=== PATIENT | female | born 1990 | race Caucasian/White ===

== ENCOUNTER 2022-10-22 10:34 | Outpatient (REF) | payer OTHER, SELFPAY ==
[2022-10-22 10:58] LABS: Hematocrit 35.8 % (37.0-47.0); Hemoglobin 11.1 g/dl (12.0-16.0); Mean Corpuscular Hemoglobin 22.7 pg (27.0-33.0); Mean Corpuscular Volume 73.1 fL (80.0-98.0); Mean Platelet Volume 11.1 fL (9.4-12.3); Platelet Count 191 X10*3/uL (160-400); Red Cell Distribution Width 16.1 % (11.0-16.0); White Blood Count 6.9 X10*3/uL (4.8-10.8)
[2022-10-22 12:17] LABS: Alanine Aminotransferase 25 U/L (0-31); Albumin Level 4.2 g/dL (3.5-5.0); Alkaline Phosphatase 95 U/L (39-117); Anion Gap 11 (12-20); Aspartate Amino Transferase 24 U/L (5-31); Bilirubin Direct < 0.2 mg/dL (0.0-0.5); Bilirubin Total 0.4 mg/dL (0.0-1.0); Blood Urea Nitrogen 14 mg/dL (9-16); Calcium 8.9 mg/dL (8.4-10.2); Carbon Dioxide 22 mmol/L (22-29); Chloride 110 mmol/L (96-108); Cholesterol 186 mg/dL; Estimated Glomerular Filt Rate > 60; Glucose Random 94 mg/dL (60-115); HDL Cholesterol 39 mg/dL; LDL Cholesterol Calculated 119 mg/dl; Sodium 139 mmol/L (135-145); Total Protein 6.9 g/dL (6.5-8.0); Triglycerides 140 mg/dL
[2022-10-22 12:33] LABS: Thyroid Stimulating Hormone 1.36 uIU/mL (0.32-4.0)
== END 2022-10-22 10:35 | disposition home or self-care (01) ==
LOC: HO.LAB 10:34
PROVIDERS: PCP Internal Medicine; Visit Provider Internal Medicine
DX: Z00.00 Encounter for general adult medical examination without abnormal findings (principal)
CPT/HCPCS: 36415; 80048; 80061; 80076; 84443; 85027

== ENCOUNTER 2023-01-21 10:18 | Outpatient (REF) | payer OTHER, SELFPAY ==
[2023-01-21 11:18] LABS: Alanine Aminotransferase 44 U/L (0-31); Albumin Level 4.2 g/dL (3.5-5.0); Alkaline Phosphatase 105 U/L (39-117); Anion Gap 12 (12-20); Aspartate Amino Transferase 37 U/L (5-31); Bilirubin Total 0.5 mg/dL (0.0-1.0); Blood Urea Nitrogen 11 mg/dL (9-16); Calcium 9.4 mg/dL (8.4-10.2); Carbon Dioxide 24 mmol/L (22-29); Chloride 108 mmol/L (96-108); Estimated Glomerular Filt Rate > 60; Glucose Random 96 mg/dL (60-115); Potassium 4.3 mmol/L (3.3-5.1); Rheumatoid Factor < 13.0 IU/mL (<15.0); Sodium 140 mmol/L (135-145); Total Protein 9.7 g/dL (6.5-8.0)
[2023-01-30 13:23] LABS: Anti Nuclear Antibody Screen POSITIVE (NEGATIVE)
== END 2023-01-21 10:19 | disposition home or self-care (01) ==
LOC: HO.LAB 10:18
PROVIDERS: Visit Provider Nurse Practitioner Family
DX: M25.50 Pain in unspecified joint (principal)
CPT/HCPCS: 36415; 80053; 86038; 86039; 86431

== ENCOUNTER 2023-02-11 10:15 | Outpatient (REF) | payer OTHER, SELFPAY ==
[2023-02-13 04:20] LABS: HBS Num1 63.24 mIU/mL (0-7.99); HBc Num1 0.08 S/CO (0.00-0.79); HBsAGNum1 0.42 S/CO (0.00-0.99); Hepatitis A Antibody IgM 0.26 Index (0-0.79); Hepatitis B Core Antibody Nonreactive (Nonreactive); Hepatitis B Surface Antigen Negative (Negative); ~HepC Num1 0.23 S/CO (0.00-0.79); ~Hepatitis A Antibody IgM Nonreactive (Nonreactive); ~Hepatitis B Surface Antibody REACTIVE (Nonreactive); ~Hepatitis C Antibody Nonreactive (Nonreactive)
== END 2023-02-11 10:16 | disposition home or self-care (01) ==
LOC: HO.LAB 10:15
PROVIDERS: PCP Internal Medicine; Visit Provider Nurse Practitioner Family
DX: R79.89 Other specified abnormal findings of blood chemistry (principal)
CPT/HCPCS: 36415; 86704; 86706; 86709; 86803; 87340

== ENCOUNTER 2023-02-17 07:59 | Outpatient (REF) | payer OTHER, SELFPAY ==
--- NOTE | ~2023-02-17 | US_ITS ---
EXAMINATION: US ABDOMEN LIMITED CLINICAL INFORMATION: Other specified abnormal findings of blood chemistry. COMPARISON: None available. TECHNIQUE: Real-time imaging of the right upper quadrant abdominal viscera. FINDINGS: PANCREAS: Normal. LIVER: The liver is normal in size. The liver contour is normal. There is diffuse increased liver parenchymal echogenicity. No focal hepatic lesion. There is no intrahepatic biliary duct dilatation seen. GALLBLADDER: A 3 mm nonmobile polyp is seen. The gallbladder is physiologically distended without evidence of stones, sludge, wall thickening or pericholecystic fluid. COMMON BILE DUCT: Normal in caliber measuring 0.5 cm in diameter. RIGHT KIDNEY: Normal. No hydronephrosis. No renal calculi or focal parenchymal lesions. The kidney measures 9.8 cm in maximum dimension. FREE FLUID: None. US/US abdomen limited IMPRESSION: 1. There is generalized increase in hepatic echotexture, consistent with fatty infiltration or hepatocellular disease. Please correlate clinically. No focal hepatic mass or intrahepatic biliary dilatation is seen. 2. A 3 mm nonmobile gallbladder polyp is incidentally noted.
== END 2023-02-17 08:00 | disposition home or self-care (01) ==
LOC: HO.US 07:59
PROVIDERS: PCP Internal Medicine; Visit Provider Nurse Practitioner Family
DX: R10.11 Right upper quadrant pain (principal); R79.89 Other specified abnormal findings of blood chemistry
CPT/HCPCS: 76705

== ENCOUNTER 2023-03-14 10:45 | Outpatient (AMB) | payer OTHER, SELFPAY ==
[2023-03-14 11:05] VITALS: BP 108/72; PULSE 60; TEMP 36.7; O2SAT 97; BMI 39.4
--- NOTE | 2023-03-14 11:05 | A.OFFVIS_ITS ---
Intake Vital Signs 03/14/23 11:05 Height 4 ft 11 in Weight 195 lb 1.745 oz BMI 39.4 BP 108/72 Blood Pressure Location Rt brachial Position Sitting Pulse 60 Pulse Source Pulse Oximeter Temp 98.1 F Temp Source Skin Pulse Oximetry (%) 97 Intake Visit Reasons: Abnormal lab Intake Note: New pt presents today for +ALEX consult. C/o pain in bl hands, bl feet. States 1st cousin on dad's side mentioned having Lupus. Colorist Formulator Required: No Accompanied by: Children Allergies No Known Allergies Allergy (Verified 03/14/23 11:09) Medication List - Last Reconciled 03/14/23 by Lee Fall MD albuterol sulfate 90 mcg/actuation (Ventolin HFA) 2 puffs inhalation Q4-6H PRN HPI HPI Comments History of Present Illness Details This is a 32-year-old female who was referred for evaluation of a positive ALEX when patient was 19 years old she was admitted to the hospital with migraines and at that time she was found to have a positive ALEX. She eventually followed up with a advertising columnist and there were no clear-cut symptoms of lupus at that time. She has not been evaluated by advertising columnist since then. Patient states that since then she has been having flare-ups of multiple joint pain affecting her hands, wrists, fingers, feet associated with swelling and morning stiffness. She states that these attacks can last 1 day up to 1 week. She would have around 10 flare-ups every year. Patient denies Raynaud's. Denies having a butterfly rash on her face. Denies photosensitivity. Denies any blood or frothy urine. Patient denies any history of DVT/PE. Patient had 7 pregnancies in total, 4 miscarriages and 3 live births. She states that she did not have to take aspirin or a blood thinner during her successful pregnancies. 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 [employer] Cognitive needs: No Hearing needs: No Vision needs: Yes Female Reproductive History Menstrual Total pregnancies: 7 Number of Living Children: 3 Ab spontaneous: 4 Review of Systems Const Reports weight gain Eyes Reports no additional complaints Card Reports no additional complaints Resp Reports no additional complaints GI Reports no additional complaints Musc Reports arthralgias and Reports joint swelling Skin/Breast Reports furuncle Psych Reports anxiety and Reports depression Physical Exam Vital Signs: Last Vital Signs Temp 98.1 F 03/14/23 11:05 Pulse 60 03/14/23 11:05 BP 108/72 03/14/23 11:05 Pulse Ox 97 03/14/23 11:05 BMI result Body Mass Index 39.4 Const General: cooperative, healthy appearing and comfortable Nutritional Appearance: obese morbidly obese Orientation/consciousness: patient oriented x3 Limitations: no limitations HEENT Head: Yes normocephalic and Yes atraumatic Mouth: moist mucous membranes Resp Effort & Inspection: normal respiratory effort and able to speak in complete sentences Auscultation: clear to auscultation bilaterally Cardio Rate: regular rate Rhythm: regular rhythm GI Inspection: No distended Palpation (GI): Soft to palpation and nontender Skin Other: Small boil in right lower abdomen Neuro General: patient oriented x3 Extrem Other: Tenderness to palpation in her right 3rd MCP Left 5th MCP tenderness Normal bilateral hand wool spotter strength Left 1st MTP tenderness and positive MTP squeeze test Normal nailfold capillaroscopy Assessment & Plan Assessment & Plan (1) ALEX positive: Code(s): R76.8 - Other specified abnormal immunological findings in serum Plan: In this is a 32-year-old female presents for evaluation of positive ALEX. Since age 19 she has been having intermittent arthralgias. Will order comprehensive serology to screen for underlying autoimmune rheumatic disease. Patient also has LFTs. Will check liver antibodies. Plan I spent 46 minutes reviewing patient's chart, evaluating patient, ordering diagnostic workup, counseling patient and documenting in the chart Orders: Orders Comprehensive Met. Panel Today M32.9 - Systemic lupus erythematosus, unspecified C Reactive Protein Today M32.9 - Systemic lupus erythematosus, unspecified Complete Blood Count Auto Diff Today M32.9 - Systemic lupus erythematosus, unspecified Erythrocyte Sedimentation Rate Today M32.9 - Systemic lupus erythematosus, unspecified Complement C3 Today M32.9 - Systemic lupus erythematosus, unspecified Complement C4 Today M32.9 - Systemic lupus erythematosus, unspecified Anti DNA DS Antibody Today M32.9 - Systemic lupus erythematosus, unspecified Anti Extractable Nuclear Ag Today M32.9 - Systemic lupus erythematosus, unspecified Hepatitis A,B,C Profile Today Z11.59 - Encounter for screening for other viral diseases Protein Creatinine Ratio, Ur Today M32.9 - Systemic lupus erythematosus, unspeci fied DNA Double Stranded-Crithidia Today M32.9 - Systemic lupus erythematosus, unspecified Sjogren's Antibodies Today M32.9 - Systemic lupus erythematosus, unspecified UA w Microscopic Today M32.9 - Systemic lupus erythematosus, unspecified Beta-2 Glycoprotein Antibody Today N96 - Recurrent loss Cardiolipin Antibodies Today N96 - Recurrent loss Lupus Anticoagulant Panel Today N96 - Recurrent loss Liver Kidney Microsomal Ab Today R79.89 - Other specified abnormal findings of blood chemistry Mitochondrial Antibody Today R79.89 - Other specified abnormal findings of blood chemistry Smooth Muscle Antibody Today R79.89 - Other specified abnormal findings of blood chemistry Cyclic Citrullinated Peptide Today M25.50 - Pain in unspecified joint Hemoglobin A1c Today E66.9 - Obesity, unspecified Coding Level of Care Code New Pt Level 4 (76064) Diagnoses ALEX positive R76.8
== END 2023-03-14 11:48 | disposition home or self-care (01) ==
PROVIDERS: PCP Internal Medicine; Visit Provider Student in an Organized Health Care Education/Training Program
DX: R76.8 Other specified abnormal immunological findings in serum (principal)
CPT/HCPCS: 99204

== ENCOUNTER 2023-03-14 10:45 | Outpatient (REF) | payer OTHER, SELFPAY ==
[2023-03-14 12:37] LABS: MANUAL DIFF FLAG NO
[2023-03-14 13:00] LABS: Estimated Average Glucose 97 mg/dL
[2023-03-14 13:33] LABS: Appearance Urine Cloudy; Color Urine PINK; Glucose Urine UA Negative (Negative); Leukocyte Esterase Urine Trace (Negative); Nitrite Urine Negative (Negative); UMIC TRIGGER UA YES; Urine Blood Large (3+) (Negative); Urine Ketones Negative (Negative); Urine Protein 30 (1+) mg/dL (Neg-Trace)
[2023-03-14 13:35] LABS: Bacteria Urine 3+ (None Seen); Hyaline Casts Urine 0-2 /LPF (0-2); RBC Urine 0-2 /HPF (0-2); WBC Urine 0-5 /HPF (0-5)
[2023-03-14 13:42] LABS: Basophils Percent Auto 0.6 % (0-2); Eosinophils Absolute Auto 0.4 X10*3/uL (0.0-0.4); Hematocrit 33.7 % (37.0-47.0); Hemoglobin 10.3 g/dl (12.0-16.0); Imm Gran Abs Auto 0.01 X10*3/uL (0.00-0.03); Imm Gran Pct Auto 0.2 % (0.0-0.4); Lymphocytes Percent Auto 40.2 % (20-40); Mean Corpuscular HGB Conc 30.6 g/dl (31.0-35.0); Mean Corpuscular Hemoglobin 22.3 pg (27.0-33.0); Mean Corpuscular Volume 72.9 fL (80.0-98.0); Mean Platelet Volume 12.1 fL (9.4-12.3); Monocytes Absolute Auto 0.3 X10*3/uL (0.1-1.2); Monocytes Percent Auto 5.4 % (2-11); Neutrophils Absolute Auto 2.3 x10*3/uL (2.0-8.3); Neutrophils Percent Auto 46.6 % (45-73); Platelet Count 180 X10*3/uL (160-400); Red Blood Count 4.62 X10*6/uL (4.20-5.50); Red Cell Distribution Width 16.6 % (11.0-16.0)
[2023-03-14 13:52] LABS: Erythrocyte Sedimentation Rate 12 MM/HR (0-20)
[2023-03-14 14:44] LABS: Creatinine Urine 147.86 mg/dL; Protein/Creatinine Ratio, Ur 0.08 (<0.2); Total Protein Urine Random 12 mg/dL (<12)
[2023-03-14 14:47] LABS: Alanine Aminotransferase 17 U/L (0-31); Albumin Level 4.1 g/dL (3.5-5.0); Alkaline Phosphatase 86 U/L (39-117); Anion Gap 11 (12-20); Aspartate Amino Transferase 20 U/L (5-31); Bilirubin Total 0.3 mg/dL (0.0-1.0); Blood Urea Nitrogen 9 mg/dL (9-16); C Reactive Protein 0.49 mg/dL (< or = 0.50); Calcium 9.2 mg/dL (8.4-10.2); Carbon Dioxide 23 mmol/L (22-29); Chloride 110 mmol/L (96-108); Estimated Glomerular Filt Rate > 60; Glucose Random 104 mg/dL (60-115); Potassium 3.5 mmol/L (3.3-5.1); Sodium 140 mmol/L (135-145); Total Protein 7.2 g/dL (6.5-8.0)
[2023-03-15 05:04] LABS: HBc Num1 0.09 S/CO (0.00-0.79); HBsAGNum1 0.47 S/CO (0.00-0.99); Hepatitis B Core Antibody Nonreactive (Nonreactive); Hepatitis B Surface Antigen Negative (Negative); ~HepC Num1 0.23 S/CO (0.00-0.79); ~Hepatitis A Antibody IgM Nonreactive (Nonreactive); ~Hepatitis B Surface Antibody REACTIVE (Nonreactive); ~Hepatitis C Antibody Nonreactive (Nonreactive)
[2023-03-16 11:48] LABS: Complement C3 148 mg/dL (83-193)
[2023-03-16 17:08] LABS: Cardiolipin IgG Ab <2.0 GPL-U/mL; Cardiolipin IgM Ab 3.5 MPL-U/mL
[2023-03-17 13:47] LABS: Anti DNA DS Antibody <1 IU/mL; Antibody to SS-A Antigen <1.0 NEG AI (<1.0 NEG); Antibody to SS-B Antigen <1.0 NEG AI (<1.0 NEG); Cyclic Citrullinated Peptide <16 UNITS; SM/Ribonucleoprotein Ab <1.0 NEG AI (<1.0 NEG); Smith Protein <1.0 NEG AI (<1.0 NEG)
[2023-03-20 00:09] LABS: Smooth Muscle Antibody 23 U (<20)
[2023-03-20 07:39] LABS: Beta-2 Glycoprotein IgA <2.0 U/mL (<20.0); Beta-2 Glycoprotein IgG <2.0 U/mL (<20.0); Beta-2 Glycoprotein IgM 6.5 U/mL (<20.0)
[2023-03-20 12:53] LABS: Mitochondrial Antibodies NEGATIVE (NEGATIVE)
[2023-03-20 23:04] LABS: Liver Kidney Microsomal Ab <=20.0 U (<=20.0)
[2023-03-21 05:14] LABS: PTT (LAC) Screen 35 sec (<=40)
[2023-03-21 12:58] LABS: DNAds, Crithidia Antibody Negative (Negative)
== END 2023-03-14 10:46 | disposition home or self-care (01) ==
LOC: HO.LAB 10:45
PROVIDERS: PCP Internal Medicine; Visit Provider Student in an Organized Health Care Education/Training Program
DX: Z11.59 Encounter for screening for other viral diseases (principal); M32.9 Systemic lupus erythematosus, unspecified; N96 Recurrent pregnancy loss; R79.89 Other specified abnormal findings of blood chemistry; E66.9 Obesity, unspecified; M25.50 Pain in unspecified joint; R76.8 Other specified abnormal immunological findings in serum
CPT/HCPCS: 36415; 80053; 81001; 83036; 84156; 85025; 85597; 85598; 85613; 85652; 85670; 85730; 86015; 86140; 86146; 86147; 86160; 86200; 86225; 86235; 86255; 86256; 86376; 86704; 86706; 86709; 86803; 87340; 99202

== ENCOUNTER 2023-05-25 13:33 | Outpatient (AMB) | payer OTHER, SELFPAY ==
--- NOTE | 2023-05-25 13:34 | A.OFFVIS_ITS ---
Intake Vital Signs 05/25/23 13:36 Height 4 ft 11 in Weight 195 lb 12.328 oz BMI 39.5 Blood Pressure Location Rt brachial Position Sitting Pulse 93 Pulse Source Pulse Oximeter Temp 97.9 F Temp Source Skin Pulse Oximetry (%) 99 Oxygen Delivery Method Room Air Intake Visit Reasons: ALEX +ve Intake Note: Patient here to follow up on +ALEX c/o left groin rash, now gone Product Support Sales Representative Required: No Accompanied by: Significant Other Allergies No Known Allergies Allergy (Verified 05/25/23 13:43) Medication List - Last Reconciled 05/25/23 by Lee Fall MD albuterol sulfate 90 mcg/actuation (Ventolin HFA) 2 puffs inhalation Q4-6H PRN HPI HPI Comments History of Present Illness Details Patient returns for follow-up after completion of her blood work. Continues to get intermittent swelling of her fingers. Month ago she started h aving pain and swelling in her left hand. She showed me pictures showing her swollen left hand. She also gets pain in her feet. A few weeks ago she developed an itchy rash in her left groin and left thigh which self-resolved after 1 week Initial history: This is a 32-year-old female who was referred for evaluation of a positive ALEX when patient was 19 years old she was admitted to the hospital with migraines and at that time she was found to have a positive ALEX. She eventually followed up with a [employer] and there were no clear-cut symptoms of lupus at that time. She has not been evaluated by [employer] since then. Patient states that since then she has been having flare-ups of multiple joint pain affecting her hands, wrists, fingers, feet associated with swelling and morning stiffness. She states that these attacks can last 1 day up to 1 week. She would have around 10 flare-ups every year. Patient denies Raynaud's. Denies having a butterfly rash on her face. Denies photosensitivity. Denies any blood or frothy urine. Patient denies any history of DVT/PE. Patient had 7 pregnancies in total, 4 miscarriages and 3 live births. She states that she did not have to take aspirin or a blood thinner during her successful pregnancies. 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 [employer] Cognitive needs: No Hearing needs: No Vision needs: Yes Review of Systems Musc Reports arthralgias and Reports joint swelling Skin/Breast Reports erythema and Reports rash Physical Exam Vital Signs: Last Vital Signs Temp 97.9 F 05/25/23 13:36 Pulse 93 05/25/23 13:36 Pulse Ox 99 05/25/23 13:36 Oxygen Delivery Method Room Air 05/25/23 13:36 BMI result Body Mass Index 39.5 Const General: cooperative, healthy appearing and comfortable Nutritional Appearance: obese morbidly obese Orientation/consciousness: patient oriented x3 Limitations: no limitations HEENT Head: Yes normocephalic and Yes atraumatic Mouth: moist mucous membranes Resp Effort & Inspection: normal respiratory effort and able to speak in complete sentences Cardio Rate: regular rate Rhythm: regular rhythm GI Inspection: No distended Palpation (GI): Soft to palpation and nontender Neuro General: patient oriented x3 Extrem Other: Tenderness to palpation in her right 5th MCP Tenderness in between her MCPs and PIPs bilaterally Normal bilateral hand relief operator strength Diffuse left MTP tenderness Right 2nd through 5th MTP tenderness Normal nailfold capillaroscopy Assessment & Plan Assessment & Plan (1) ALEX positive: Comment: This is a 32-year-old female who Code(s): R76.8 - Other specified abnormal immunological findings in serum Plan: In this is a 32-year-old female presents for evaluation of positive ALEX. Since age 19 she has been having intermittent arthralgias. She gets pain and swelling in her hands and feet. Flare-ups happen about once a month and last a few days to 1 week. Labs showed a positive ALEX with negative sub serologies. 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 Start hydroxychloroquine 200 mg Twice daily trial Follow-up in 4 months (2) Elevated LFTs: Code(s): R79.89 - Other specified abnormal findings of blood chemistry Plan: Intermittent transaminitis with borderline positive ASMA, will refer patient to gastroenterology (3) Long-term use of Plaquenil: Code(s): Z79.899 - Other long lines operator (current) drug therapy Plan: Discussed risk of retinopathy associated with hydroxychloroquine. Will refer patient to Ophthalmology Plan I spent 30 minutes reviewing patient's chart, evaluating patient, ordering diagnostic workup, counseling patient and documenting in the chart Orders: Orders Complete Blood Count Auto Diff 4 Months D50.9 - Iron deficiency anemia, unspecified Ferritin 4 Months D50.9 - Iron deficiency anemia, unspecified Transferrin 4 Months D50.9 - Iron deficiency anemia, unspecified Comprehensive Met. Panel 4 Months D50.9 - Iron deficiency anemia, unspecified C Reactive Protein 4 Months D50.9 - Iron deficiency anemia, unspecified Erythrocyte Sedimentation Rate 4 Months D50.9 - Iron deficiency anemia, unspecified IRON PROFILE 4 Months D50.9 - Iron deficiency anemia, unspecified Referrals Ophthalmology Referral Z79.899 - Other fci (current) drug therapy Gastroenterology Referral R79.89 - Other specified abnormal findings of blood chemistry Medications: New hydroxychloroquine 200 mg PO BID 60 tabs 3RF Coding Level of Care Code Est Pt Level 4 (82988) Diagnoses ALEX positive R76.8 Elevated LFTs R79.89 Long-term use of Plaquenil Z79.899
[2023-05-25 13:36] VITALS: PULSE 93; TEMP 36.6; O2SAT 99; BMI 39.5
== END 2023-05-25 14:08 | disposition home or self-care (01) ==
PROVIDERS: PCP Internal Medicine; Visit Provider Student in an Organized Health Care Education/Training Program
DX: R76.8 Other specified abnormal immunological findings in serum (principal); R79.89 Other specified abnormal findings of blood chemistry; Z79.899 Other long term (current) drug therapy
CPT/HCPCS: 99214

== ENCOUNTER → 2023-05-25 13:33 | Outpatient (BNVA) | payer OTHER, SELFPAY | PROVIDERS: PCP Internal Medicine; Visit Provider Student in an Organized Health Care Education/Training Program | DX: R76.8 Other specified abnormal immunological findings in serum (principal); R79.89 Other specified abnormal findings of blood chemistry; Z79.899 Other long term (current) drug therapy | CPT/HCPCS: 99212 ==

== ENCOUNTER 2023-06-26 12:40 | Outpatient (AMB) | payer OTHER, SELFPAY ==
--- NOTE | 2023-06-26 12:48 | A.OFFVIS_ITS ---
Intake Vital Signs 06/26/23 12:49 Height 4 ft 11 in Weight 194 lb 0.108 oz BMI 39.2 BP 110/59 L Blood Pressure Location Rt brachial Position Sitting Pulse 73 Intake Visit Reasons: elevated LFTs Intake Note: Sanna presents in the office as a new patient for elevated LFT CC: She is here today because of the labs. She states that she just found out that she is 9 week . Allergies No Known Allergies Allergy (Verified 06/26/23 12:51) HPI HPI Comments History of Present Illness Details A 32 y/o female referred for elevated liver enzymes-by derm She says she had a sinus infection- she had hx positive ALEX-went to rheumatology- Dr. Sanderson-she was told she has mild lupus. Normal enzymes 09/2022 , mild enzyme elevation 12/2022, 2022- normal enzymes. anemia since Due for Dr. Sanderson repeat labs in August She began hydroxychloroquine 05/16 x 2 wks- D/C due to - She has been having sx of hand swelling-since HS- Nausea and vomiting began with No abdominal pain, hematemesis, hematochezia, fever chills PFSH Medical History History of recurrent miscarriages Surgical History Previous section Family History Mother Crohn's disease IBS (irritable bowel syndrome) Mental and behavioral problem Hypertension Stroke Fibromyalgia Father Mental and behavioral problem Asthma Hypertension Maternal Uncle Colon cancer Social History Household Members: Spouse and Children Housing: Apartment Alcohol intake: never Patient Tobacco Use Status: Never used Tobacco service: No Current occupational status: employed 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 [employer] Cognitive needs: No Hearing needs: No Vision needs: Yes Review of Systems Const All systems reviewed & are unremarkable except as noted in HPI and below Card Denies chest pain GI Denies hematochezia, Denies change in bowel habits, Denies heartburn, Reports diarrhea and Reports nausea Details: 9 wks IUP Physical Exam Vital Signs: Last Vital Signs Pulse 73 06/26/23 12:49 BP 110/59 L 06/26/23 12:49 BMI result Body Mass Index 39.2 Const General: cooperative, healthy appearing, comfortable and no acute distress Orientation/consciousness: patient oriented x3 Limitations: no limitations Eyes Sclerae: sclerae normal Resp Effort & Inspection: normal respiratory effort and able to speak in complete sentences Auscultation: clear to auscultation bilaterally, no rales, no rhonchi and no wheezes Cardio Rate: regular rate Rhythm: regular rhythm GI Inspection: Yes Abdominal panniculus present Palpation (GI): Soft to palpation and nontender Auscultation: normal bowel sounds Skin General skin exam: no rashes or lesions noted and no jaundice Neuro General: patient oriented x3 Extrem General: Yes full ROM Psych Appearance: grossly normal and well kempt Mental Status: mental status grossly normal Speech and movement: Normal speech and movement present and Clear speech present Affect: normal affect Attitude: cooperative Thought content: Normal thought content present Insight: Good insight present (Psych) Judgement: Good judgement present (Psych) Results Reviewed Results Reviewed: Dr. Sanderson-Discussed with patient over the phone. Explained that hydroxychloroquine is quite safe during , however I Explained that she does not fulfill criteria for lupus and there is no compelling indication to be on hydroxychloroquine while when she does not absolutely need it. Patient will stop it and will discuss with her OBGYN. Advised patient that she can take vitamins with hydroxychloroquine Lee Fall completed item. US/US abdomen limited IMPRESSION: 1. There is generalized increase in hepatic echotexture, consistent with fatty infiltration or hepatocellular disease. Please correlate clinically. No focal hepatic mass or intrahepatic biliary dilatation is seen. 2. A 3 mm nonmobile gallbladder polyp is incidentally noted. Assessment & Plan Assessment & Plan (1) Elevated LFTs: Comment: normal enzymes 02/2023 Hydroxychloroquine-discontinued after 2 weeks due to Code(s): R79.89 - Other specified abnormal findings of blood chemistry (2) : Comment: Nine weeks IUP Code(s): Z34.90 - Encounter for supervision of normal , unspecified, unspecified trimester (3) ALEX positive: Comment: This is a 32-year-old female - 1:80 reportedly since high school ASMA 23 (20 ) Code(s): R76.8 - Other specified abnormal immunological findings in serum Plan: r/o AIH-normal liver enzymes, (4) Nausea & vomiting: Comment: Began with Code(s): R11.2 - Nausea with vomiting, unspecified Plan: See Ob Plan NTD at this time consult with Ana-with per our discussion-she may follow-up with her OB there is nothing at this time, however may follow her after has been completed. Call pt w/ vjzy=[phone]-gyrmftzkm above with patient she agrees Encouraged to call with any questions or concerns Home Phone Patient Instructions: Pleasant 32-year-old female 9 wks IUP-ALEX, positive mild ASMA-currently normal liver enzymes-reviewed labs, at this time nothing further to do. If all well will likely follow-up after . However will consult with Dr. Perez for confirmation and informed the patient. She is agreeable with the plan. Pre encouraged to call questions or concerns Coding Level of Care Code New Pt Level 4 (74994) Diagnoses Elevated LFTs R79.89 Z34.90 ALEX positive R76.8 Nausea & vomiting R11.2 Time Spent (min) 35
[2023-06-26 12:49] VITALS: BP 110/59; PULSE 73; BMI 39.2
== END 2023-06-26 13:32 | disposition home or self-care (01) ==
PROVIDERS: PCP Internal Medicine; Visit Provider Physician Assistant
DX: R79.89 Other specified abnormal findings of blood chemistry (principal); Z34.90 Encounter for supervision of normal pregnancy, unspecified, unspecified trimester; R76.8 Other specified abnormal immunological findings in serum; R11.2 Nausea with vomiting, unspecified
CPT/HCPCS: 99204

== ENCOUNTER → 2023-06-26 12:40 | Outpatient (BNVA) | payer OTHER, SELFPAY | PROVIDERS: PCP Internal Medicine; Visit Provider Physician Assistant | DX: O21.9 Vomiting of pregnancy, unspecified (principal); O26.891 Other specified pregnancy related conditions, first trimester; R79.89 Other specified abnormal findings of blood chemistry; R76.8 Other specified abnormal immunological findings in serum; Z3A.09 9 weeks gestation of pregnancy | CPT/HCPCS: 99202 ==

== ENCOUNTER 2023-09-25 08:14 | Outpatient (REF) | payer OTHER, SELFPAY ==
[2023-09-25 08:35] LABS: MANUAL DIFF FLAG NO
[2023-09-25 09:01] LABS: Basophils Percent Auto 0.3 % (0-2); Eosinophils Absolute Auto 0.1 X10*3/uL (0.0-0.4); Eosinophils Percent Auto 1.7 % (0-4); Hematocrit 28.5 % (37.0-47.0); Hemoglobin 8.8 g/dl (12.0-16.0); Imm Gran Abs Auto 0.03 X10*3/uL (0.00-0.03); Imm Gran Pct Auto 0.4 % (0.0-0.4); Lymphocytes Absolute Auto 1.8 X10*3/uL (1.2-4.9); Lymphocytes Percent Auto 24.6 % (20-40); Mean Corpuscular HGB Conc 30.9 g/dl (31.0-35.0); Mean Corpuscular Hemoglobin 21.6 pg (27.0-33.0); Mean Platelet Volume 11.7 fL (9.4-12.3); Monocytes Absolute Auto 0.4 X10*3/uL (0.1-1.2); Monocytes Percent Auto 5.5 % (2-11); Neutrophils Absolute Auto 4.8 x10*3/uL (2.0-8.3); Neutrophils Percent Auto 67.5 % (45-73); Platelet Count 143 X10*3/uL (160-400); Red Blood Count 4.07 X10*6/uL (4.20-5.50); Red Cell Distribution Width 16.3 % (11.0-16.0); White Blood Count 7.1 X10*3/uL (4.8-10.8)
[2023-09-25 09:39] LABS: Erythrocyte Sedimentation Rate 33 MM/HR (0-20)
[2023-09-25 09:51] LABS: Alanine Aminotransferase 10 U/L (0-31); Albumin Level 3.3 g/dL (3.5-5.0); Alkaline Phosphatase 66 U/L (39-117); Anion Gap 11 (12-20); Aspartate Amino Transferase 13 U/L (5-31); Bilirubin Total 0.2 mg/dL (0.0-1.0); Blood Urea Nitrogen 6 mg/dL (9-16); C Reactive Protein 0.99 mg/dL (< or = 0.50); Calcium 8.9 mg/dL (8.4-10.2); Carbon Dioxide 20 mmol/L (22-29); Chloride 110 mmol/L (96-108); Estimated Glomerular Filt Rate > 60; Glucose Random 90 mg/dL (60-115); Iron 20 mcg/dL (30-160); Percent Iron Saturation 5 % (15-50); Potassium 3.6 mmol/L (3.3-5.1); Sodium 137 mmol/L (135-145); Total Iron Binding Capacity 433 mcg/dL (228-428); Total Protein 6.6 g/dL (6.5-8.0); Unsaturated Iron Binding 413 ug/dL
[2023-09-25 10:06] LABS: Ferritin 2 ng/mL (10-122)
[2023-09-26 13:39] LABS: Transferrin 398 mg/dL (188-341)
== END 2023-09-25 08:15 | disposition home or self-care (01) ==
LOC: HO.LAB 08:14
PROVIDERS: PCP Internal Medicine; Visit Provider Student in an Organized Health Care Education/Training Program
DX: D50.9 Iron deficiency anemia, unspecified (principal); M32.9 Systemic lupus erythematosus, unspecified; R76.8 Other specified abnormal immunological findings in serum; R79.89 Other specified abnormal findings of blood chemistry; Z79.899 Other long term (current) drug therapy
CPT/HCPCS: 36415; 80053; 82728; 83540; 84466; 85025; 85652; 86140; 99212

== ENCOUNTER 2023-09-25 13:26 | Outpatient (AMB) | payer OTHER, SELFPAY ==
[2023-09-25 13:36] VITALS: BP 112/74; PULSE 95; TEMP 36.2; O2SAT 100; BMI 39.8
--- NOTE | 2023-09-25 13:36 | MHC.OFFVIS ---
Intake Vital Signs 09/25/23 13:36 Height 4 ft 11 in Weight 196 lb 13.965 oz BMI 39.8 BP 112/74 Blood Pressure Location Rt brachial Position Sitting Pulse 95 Pulse Source Pulse Oximeter Temp 97.1 F Temp Source Skin Pulse Oximetry (%) 100 Oxygen Delivery Method Room Air Intake Visit Reasons: SLE Intake Note: Patient last seen 05/25/23 presents today for follow up and test results. She states she didn't take plaquenil as she found out she was . Shipping Inspector Required: No Accompanied by: Spouse Allergies No Known Allergies Allergy (Verified 09/25/23 13:39) Medication List - Last Reconciled 09/25/23 by Lee Fall MD albuterol sulfate 90 mcg/actuation (Ventolin HFA) 2 puffs inhalation Q4-6H PRN docosahexaenoic acid ( DHA) mg PO HPI HPI Comments History of Present Illness Details 33-year-old female with UCTD returns for follow-up. Patient discontinued hydroxychloroquine after 2 weeks as she found out she was after last visit. She states that she continues to have intermittent pain and swelling of her hands. It happens approximately once a month and lasts 5-7 days. Most recent episode was last week. It lasted about 7 days. Patient stated that she was under plenty of stress as her father was in the hospital, he . She is doing well today. She has not had any rashes or fevers. Initial history: This is a 32-year-old female who was referred for evaluation of a positive ALEX when patient was 19 years old she was admitted to the hospital with migraines and at that time she was found to have a positive ALEX. She eventually followed up with a animal science instructor and there were no clear-cut symptoms of lupus at that time. She has not been evaluated by animal science instructor since then. Patient states that since then she has been having flare-ups of multiple joint pain affecting her hands, wrists, fingers, feet associated with swelling and morning stiffness. She states that these attacks can last 1 day up to 1 week. She would have around 10 flare-ups every year. Patient denies Raynaud's. Denies having a butterfly rash on her face. Denies photosensitivity. Denies any blood or frothy urine. Patient denies any history of DVT/PE. Patient had 7 pregnancies in total, 4 miscarriages and 3 live births. She states that she did not have to take aspirin or a blood thinner during her successful pregnancies. 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 [employer] Cognitive needs: No Hearing needs: No Vision needs: Yes Review of Systems Musc Reports arthralgias and Reports joint swelling Physical Exam Vital Signs: Last Vital Signs Temp 97.1 F 09/25/23 13:36 Pulse 95 09/25/23 13:36 BP 112/74 09/25/23 13:36 Pulse Ox 100 09/25/23 13:36 Oxygen Delivery Method Room Air 09/25/23 13:36 BMI result Body Mass Index 39.8 Const General: cooperative, healthy appearing and comfortable Nutritional Appearance: obese morbidly obese Orientation/consciousness: patient oriented x3 Limitations: no limitations HEENT Head: Yes normocephalic and Yes atraumatic Mouth: moist mucous membranes Resp Effort & Inspection: normal respiratory effort and able to speak in complete sentences Cardio Rate: regular rate Rhythm: regular rhythm GI Other: Gravid abdomen Palpation (GI): Soft to palpation and Tenderness to palpation present (GI) Skin General skin exam: no rashes or lesions noted Neuro General: patient oriented x3 Extrem Other: Minimal Tenderness in between her MCPs and PIPs bilaterally Normal bilateral hand captain of guards strength No MTP tenderness today Normal nailfold capillaroscopy Assessment & Plan Assessment & Plan (1) ALEX positive: Comment: Positive ALEX 1-80, arthralgias ASMA 23 (20 ) Code(s): R76.8 - Other specified abnormal immunological findings in serum Plan: This is a 32-year-old female with UCTD who presents for follow-up. Since age 19 she has been having intermittent arthralgias. She gets pain and swelling in her hands and feet. Flare-ups happen about once a month and last a few days to 1 week. Labs showed a positive ALEX with negative sub serologies. Clinical picture consistent with undifferentiated connective tissue disease. Last visit we started hydroxychloroquine 200 mg Twice daily but patient discontinued it 2 weeks after as she found out she was . She continues to have similar episodes of intermittent arthralgias. No other symptoms. Will continue to watch patient off DMARDs at this point. Labs before next visit in 6 months (2) Elevated LFTs: Comment: normal enzymes 02/2023 Hydroxychloroquine-discontinued after 2 weeks due to Code(s): R79.89 - Other specified abnormal findings of blood chemistry Plan: Intermittent transaminitis with borderline positive ASMA. She was evaluated by GI. Her most recent liver enzymes have been normal. (3) Iron deficiency anemia: Code(s): D50.9 - Iron deficiency anemia, unspecified Qualifiers: Iron deficiency anemia type: unspecified iron deficiency Qualified Code(s): D50.9 - Iron deficiency anemia, unspecified Plan: Follow-up with PCP or OBGYN Plan I spent 25 minutes reviewing patient's chart, evaluating patient, ordering diagnostic workup, counseling patient and documenting in the chart Orders: Orders Complete Blood Count Auto Diff 6 Months M32.9 - Systemic lupus erythematosus, unspecified C Reactive Protein 6 Months M32.9 - Systemic lupus erythematosus, unspecified Erythrocyte Sedimentation Rate 6 Months M32.9 - Systemic lupus erythematosus, unspecified Anti DNA DS Antibody 6 Months M32.9 - Systemic lupus erythematosus, unspecified Complement C3 6 Months M32.9 - Systemic lupus erythematosus, unspecified UA w Microscopic 6 Months M32.9 - Systemic lupus erythematosus, unspecified Comprehensive Met. Panel 6 Months M32.9 - Systemic lupus erythematosus, unspecified Complement C4 6 Months M32.9 - Systemic lupus erythematosus, unspecified Protein Creatinine Ratio, Ur 6 Months M32.9 - Systemic lupus erythematosus, unspecified Coding Level of Care Code Est Pt Level 4 (41066) Diagnoses ALEX positive R76.8 Elevated LFTs R79.89 Iron deficiency anemia, unspecified iron deficiency anemia type D50.9 Iron deficiency anemia type: unspecified iron deficiency
== END 2023-09-25 14:03 | disposition home or self-care (01) ==
PROVIDERS: PCP Internal Medicine; Visit Provider Student in an Organized Health Care Education/Training Program
DX: R76.8 Other specified abnormal immunological findings in serum (principal); R79.89 Other specified abnormal findings of blood chemistry; D50.9 Iron deficiency anemia, unspecified
CPT/HCPCS: 99214

== ENCOUNTER 2023-10-05 08:18 | Outpatient (AMB) | payer OTHER, SELFPAY ==
--- NOTE | 2023-10-05 08:29 | A.OFFPC_ITS ---
Vital Signs 10/05/23 08:32 Height 4 ft 11 in Weight 198 lb 8 oz BMI 40.1 BP 110/70 Blood Pressure Location Lt brachial Position Sitting Pulse 80 Pulse Source Pulse Oximeter Pulse Oximetry (%) 100 Oxygen Delivery Method Room Air Intake Visit Reasons: PE Intake Note: Patient is here today for a physical. Field Talent Qualification Specialist Required: No Tank Processor: Not Required per policy Accompanied by: Self / Same As Patient Allergies No Known Allergies Allergy (Verified 10/05/23 08:56) Medication List - Last Reconciled 10/05/23 by Remy Zarate MD albuterol sulfate 90 mcg/actuation (Ventolin HFA) 2 puffs inhalation Q4-6H PRN docosahexaenoic acid ( DHA) mg PO Tobacco use date assessed: 10/05/23 Dental Screening Dental Screen Date: 10/05/23 Did you have a dental visit in the last 12 months?: No Did you have a dental problem in the last 6 months where you did not have access to dental care?: No Was dental information given to patient?: No HPI PE HPI Details 33-year-old female presents to the [facility] requesting an annual physical. She is 7 months . [facility] Medical History (Updated 10/05/23 @ 09:00 by Remy Zarate MD) Iron deficiency anemia Moderate major depression 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 Surgical History Previous section Family History Mother Crohn's disease IBS (irritable bowel syndrome) Mental and behavioral problem Hypertension Stroke Fibromyalgia Father Mental and behavioral problem Asthma Hypertension Maternal Uncle Colon cancer Social History Household Members: Spouse and Children Housing: Apartment Alcohol intake: never Patient Tobacco Use Status: Never used Tobacco e-Cigarette/Vaping Use: Never Used Second Hand Smoke Exposure: No service: No Current occupational status: employed 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 1. Little interest or pleasure in doing things: several days 2. Feeling down, depressed, or hopeless: several days 3. Trouble falling or staying asleep, or sleeping too much: nearly every day 4. Feeling tired or having little energy: nearly every day 5. Poor appetite or overeating: not at all 6. Feeling bad about yourself - or that you are a failure or have let yourself or your family down: not at all 7. Trouble concentrating on things, such as reading the newspaper or watching television: not at all 8. Moving or speaking so slowly that other people could have noticed. Or the opposite - being so fidgety or restless that you have been moving around a lot more than usual: not at all 9. Thoughts that you would be better off or of hurting yourself in some way: not at all Total score: 8 Depression Screening Interpretation: Positive (currently and not on SSRI) Depression Screening Follow-up: Existing condition and In treatment Depression Screening Done: Yes Source: Developed by Drs. Parker Farrell, Sole Beverly, Darius Haider and colleagues, with an educational phill from [employer]. Thrive Questionnaire Date Thrive assessed: 10/05/23 I am a: Patient What is your living situation today?: I have a steady place to live Within the past 12 months, did the food you bought not last and you didn't have the money to get more?: Never true Within the past 12 months, did you worry whether your food would run out before you got money to buy more?: Never true Do you have trouble paying for medicines?: No Do you have trouble getting transportation to medical appointments?: No Do you have trouble paying your heating and electricity bill?: No Do you have trouble taking care of your child, family member or friend?: No Do you have trouble with day-to-day activities such as bathing, preparing meals, shopping, managing finances, etc.?: No Are you currently unemployed and looking for a job?: No Are you interested in more education?: No Currently or been in a relationship where the following occur: no concerns reported THRIVE Score: 0 AUDIT C Alcohol Use Questionnaire (AUDIT-C) 1. How often do you have a drink containing alcohol?: Never Total Score: 0 PARMINDER-7 AMB Questionnaire PARMINDER-7 Date PARMINDER - 7 assessed: 10/05/23 Feeling nervous, anxious, or on edge: 0 = Not at all Not being able to stop or control worryin = Not at all Worrying too much about different things: 0 = Not at all Trouble relaxin = Not at all Being so restless that it is hard to sit still: 0 = Not at all Becoming easily annoyed or irritable: 0 = Not at all Feeling afraid as if something awful might happen: 0 = Not at all Total PARMINDER-7 score (0-4 normal; 5-9 mild; 10-14 moderate; 15-21 severe): 0 Source: Developed by Drs. Parker Farrell, Sole Beverly, Darius Haider and colleagues, with an educational phill from [employer]. Physical exam (Primary Care) Vital Signs: Last Vital Signs Pulse 80 10/05/23 08:32 BP 110/70 10/05/23 08:32 Pulse Ox 100 10/05/23 08:32 Oxygen Delivery Method Room Air 10/05/23 08:32 Care Plan Goal for BP management: Blood pressure is in range. On no medications. BMI result Body Mass Index 40.1 Tobacco/Smoking Status: Tobacco use Status Tobacco use date assessed 10/05/23 10/05/23 08:37 Patient Tobacco Use Status Never used Tobacco 10/05/23 08:37 e-Cigarette/Vaping Use Never Used 10/05/23 08:37 PHQ-9: PHQ-9 Score PHQ-9: Total score 8 10/05/23 08:37 Depression Screening Interpretation: Positive (currently and not on SSRI) Depression Screening Follow-up: Existing condition and In treatment Thrive Assessment: Date of Thrive Assessment Date Thrive assessed 10/05/23 10/05/23 08:37 Currently or been in a relationship where the following occur: no concerns reported Const General: cooperative and healthy appearing Nutritional Appearance: well nourished Orientation/consciousness: patient oriented x3 Limitations: no limitations HENMT Head: Yes normal to inspection Eyes General: appearance normal, both eyes and all related structures Neck Neck: Yes normal visual inspection Chest Chest palpation & inspection: normal palpation of entire chest wall Resp Effort & Inspection: normal respiratory effort Neuro General: patient oriented x3 Assessment and Plan Assessment & Plan (1) Undifferentiated connective tissue disease: Code(s): M35.9 - Systemic involvement of connective tissue, unspecified Plan: Condition is stable. Due to she is not taking Plaquenil. She has a follow up with the air traffic systems technician (2) Moderate major depression: Code(s): F32.1 - Major depressive disorder, single episode, moderate Plan: Symptoms are stable. Not needing any medication at the moment (3) Iron deficiency anemia: Code(s): D50.9 - Iron deficiency anemia, unspecified Qualifiers: Iron deficiency anemia type: unspecified iron deficiency Qualified Code(s): D50.9 - Iron deficiency anemia, unspecified Plan: BW revd. Iron supplementation needed. Pt has an OB appt later today. Encouraged patient to discuss this matter and start iron supplementation (4) Annual physical exam: Code(s): Z00.00 - Encounter for general adult medical examination without abnormal findings Plan: Blood work revd Coding Level of Care Code Est Pt Prev Care 18-39y([id number]) Diagnoses Undifferentiated connective tissue disease M35.9 Moderate major depression F32.1 Iron deficiency anemia, unspecified iron deficiency anemia type D50.9 Iron deficiency anemia type: unspecified iron deficiency Annual physical exam Z00.00
[2023-10-05 08:32] VITALS: BP 110/70; PULSE 80; O2SAT 100; BMI 40.1
== END 2023-10-05 08:50 | disposition home or self-care (01) ==
PROVIDERS: PCP Internal Medicine; Visit Provider Internal Medicine
DX: M35.9 Systemic involvement of connective tissue, unspecified (principal); F32.1 Major depressive disorder, single episode, moderate; D50.9 Iron deficiency anemia, unspecified; Z00.00 Encounter for general adult medical examination without abnormal findings
CPT/HCPCS: 99395

== ENCOUNTER 2024-03-18 11:06 | Outpatient (REF) | payer OTHER, SELFPAY ==
[2024-03-18 11:22] LABS: MANUAL DIFF FLAG NO
[2024-03-18 11:44] LABS: Basophils Percent Auto 0.5 % (0-2); Eosinophils Absolute Auto 0.1 X10*3/uL (0.0-0.4); Eosinophils Percent Auto 2.4 % (0-4); Hematocrit 37.1 % (37.0-47.0); Hemoglobin 12.1 g/dl (12.0-16.0); Imm Gran Abs Auto 0.01 X10*3/uL (0.00-0.03); Imm Gran Pct Auto 0.2 % (0.0-0.4); Lymphocytes Absolute Auto 1.7 X10*3/uL (1.2-4.9); Lymphocytes Percent Auto 41.9 % (20-40); Mean Corpuscular HGB Conc 32.6 g/dl (31.0-35.0); Mean Corpuscular Hemoglobin 26.4 pg (27.0-33.0); Mean Corpuscular Volume 80.8 fL (80.0-98.0); Mean Platelet Volume 11.5 fL (9.4-12.3); Monocytes Absolute Auto 0.3 X10*3/uL (0.1-1.2); Monocytes Percent Auto 6.5 % (2-11); Neutrophils Percent Auto 48.5 % (45-73); Platelet Count 171 X10*3/uL (160-400); Red Blood Count 4.59 X10*6/uL (4.20-5.50); Red Cell Distribution Width 14.6 % (11.0-16.0); White Blood Count 4.1 X10*3/uL (4.8-10.8)
[2024-03-18 11:49] LABS: Appearance Urine Clear; Color Urine Yellow; Glucose Urine UA Negative (Negative); Leukocyte Esterase Urine Negative (Negative); Nitrite Urine Negative (Negative); PH 5.5 (5.0-9.0); Urine Blood Negative (Negative); Urine Ketones Trace mg/dL (Negative); Urine Protein Negative (Neg-Trace)
[2024-03-18 11:52] LABS: Bacteria Urine Trace (None Seen); Hyaline Casts Urine 0-2 /LPF (0-2); RBC Urine 0-2 /HPF (0-2); WBC Urine 0-5 /HPF (0-5)
[2024-03-18 12:08] LABS: Creatinine Urine 166.94 mg/dL; Protein/Creatinine Ratio, Ur 0.05 (<0.2); Total Protein Urine Random 8 mg/dL (<12)
[2024-03-18 12:09] LABS: Alanine Aminotransferase 14 U/L (0-31); Albumin Level 4.2 g/dL (3.5-5.0); Alkaline Phosphatase 99 U/L (39-117); Anion Gap 11 (12-20); Aspartate Amino Transferase 19 U/L (5-31); Bilirubin Total 0.8 mg/dL (0.0-1.0); Blood Urea Nitrogen 10 mg/dL (9-16); C Reactive Protein 0.21 mg/dL (< or = 0.50); Calcium 9.3 mg/dL (8.4-10.2); Carbon Dioxide 24 mmol/L (22-29); Chloride 109 mmol/L (96-108); Estimated Glomerular Filt Rate > 60; Glucose Random 90 mg/dL (60-115); Potassium 3.8 mmol/L (3.3-5.1); Sodium 140 mmol/L (135-145); Total Protein 6.9 g/dL (6.5-8.0)
[2024-03-18 12:48] LABS: Erythrocyte Sedimentation Rate 6 MM/HR (0-20)
[2024-03-19 13:48] LABS: Complement C3 121 mg/dL (83-193)
[2024-03-19 13:54] LABS: Anti DNA DS Antibody <1 IU/mL
== END 2024-03-18 11:07 | disposition home or self-care (01) ==
LOC: HO.LAB 11:06
PROVIDERS: PCP Internal Medicine; Visit Provider Student in an Organized Health Care Education/Training Program
DX: M32.9 Systemic lupus erythematosus, unspecified (principal)
CPT/HCPCS: 36415; 80053; 81001; 82570; 84156; 85025; 85652; 86140; 86160; 86225

== ENCOUNTER 2024-03-20 09:43 | Outpatient (AMB) | payer OTHER, SELFPAY ==
--- NOTE | 2024-03-20 09:45 | MHC.OFFVIS ---
Vital Signs 03/20/24 09:49 Height 4 ft 11 in Weight 183 lb 6.793 oz BMI 37.0 BP 110/70 Blood Pressure Location Lt brachial Position Sitting Respiration 16 Pulse 73 Pulse Source Pulse Oximeter Pulse Oximetry (%) 99 Oxygen Delivery Method Room Air Intake Visit Reasons: UCTD/CM Intake Note: Patient presents for UCTD. Allergies No Known Allergies Allergy (Verified 03/20/24 09:48) Medication List - Last Reconciled 03/20/24 by Lee Fall MD albuterol sulfate 90 mcg/actuation (Ventolin HFA) 2 puffs inhalation Q4-6H PRN HPI Comments Details: 33-year-old female with UCTD returns for follow-up. She delivered a healthy baby at 39 weeks by about 2 months ago. She has not breast-feeding. She states that it was overwhelming for her. She states that she has doing about the same overall. She gets intermittent body aches. Rare swelling of her hands that does not last too long. Denies any skin rashes or fevers. Initial history: This is a 32-year-old female who was referred for evaluation of a positive ALEX when patient was 19 years old she was admitted to the hospital with migraines and at that time she was found to have a positive ALEX. She eventually followed up with a check processing clerk and there were no clear-cut symptoms of lupus at that time. She has not been evaluated by check processing clerk since then. Patient states that since then she has been having flare-ups of multiple joint pain affecting her hands, wrists, fingers, feet associated with swelling and morning stiffness. She states that these attacks can last 1 day up to 1 week. She would have around 10 flare-ups every year. Patient denies Raynaud's. Denies having a butterfly rash on her face. Denies photosensitivity. Denies any blood or frothy urine. Patient denies any history of DVT/PE. Patient had 7 pregnancies in total, 4 miscarriages and 3 live births. She states that she did not have to take aspirin or a blood thinner during her successful pregnancies. [facility] Medical History Iron deficiency anemia Moderate major depression 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 Surgical History Previous section Family History Mother Crohn's disease IBS (irritable bowel syndrome) Mental and behavioral problem Hypertension Stroke Fibromyalgia Father Mental and behavioral problem Asthma Hypertension Maternal Uncle Colon cancer Social History Household Members: Spouse and Children Housing: Apartment Alcohol intake: never Patient Tobacco Use Status: Never used Tobacco e-Cigarette/Vaping Use: Never Used Second Hand Smoke Exposure: No service: No Current occupational status: employed 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 [employer] Cognitive needs: No Hearing needs: No Vision needs: Yes Female Reproductive History Menstrual Total pregnancies: 8 Number of Living Children: 4 Ab spontaneous: 4 Review of Systems Const Denies fever(s) Musc Reports arthralgias and Reports joint swelling Skin/Breast Denies rash Physical Exam Vital Signs: Last Vital Signs Pulse 73 03/20/24 09:49 Resp 16 03/20/24 09:49 BP 110/70 03/20/24 09:49 Pulse Ox 99 03/20/24 09:49 Oxygen Delivery Method Room Air 03/20/24 09:49 BMI result Body Mass Index 37.0 Const General: cooperative, healthy appearing and comfortable Nutritional Appearance: obese morbidly obese Orientation/consciousness: patient oriented x3 Limitations: no limitations HEENT Head: Yes normocephalic and Yes atraumatic Mouth: moist mucous membranes Resp Effort & Inspection: normal respiratory effort and able to speak in complete sentences Cardio Rate: regular rate Rhythm: regular rhythm Skin General skin exam: no rashes or lesions noted Neuro General: patient oriented x3 Extrem Other: No active synovitis today Normal bilateral hand calender wind up tender strength No MTP tenderness today Normal nailfold capillaroscopy Assessment & Plan Assessment & Plan (1) ALEX positive: Comment: Positive ALEX 1-80, arthralgias ASMA 23 (20 ) Code(s): R76.8 - Other specified abnormal immunological findings in serum Category: Medical Plan: This is a 32-year-old female with UCTD who presents for follow-up. Since age 19 she has been having intermittent arthralgias. She gets pain and swelling in her hands and feet. Labs showed a positive ALEX with negative sub serologies. Clinical picture consistent with undifferentiated connective tissue disease. Hydroxychloroquine was started about 6 months ago, patient took it only for 2 weeks then she found out she was and she stopped it. She has delivered a healthy baby 2 months ago. She continues to have similar symptoms. Symptoms are few and far in between. There are no skin rashes, no fevers. There are no cytopenias, no proteinuria, normal LFTs with normal inflammatory markers. Her arthralgias symptoms are very minimal, symptoms are few and far in-between. We will not start DMARDs at this time. Patient can follow-up as needed. Discussed symptoms and signs that would favor a return to the office for re-evaluation Plan I spent 15 minutes reviewing patient's chart, evaluating patient, counseling patient and documenting in the chart Coding Level of Care Code Est Pt Level 3 (60896) Diagnoses ALEX positive R76.8
[2024-03-20 09:49] VITALS: BP 110/70; PULSE 73; RESP 16; O2SAT 99; BMI 37.0
== END 2024-03-20 10:02 | disposition home or self-care (01) ==
PROVIDERS: PCP Internal Medicine; Visit Provider Student in an Organized Health Care Education/Training Program
DX: R76.8 Other specified abnormal immunological findings in serum (principal)
CPT/HCPCS: 99213

== ENCOUNTER → 2024-03-20 09:43 | Outpatient (BNVA) | payer OTHER, SELFPAY | PROVIDERS: PCP Internal Medicine; Visit Provider Student in an Organized Health Care Education/Training Program | DX: R76.8 Other specified abnormal immunological findings in serum (principal) | CPT/HCPCS: 99212 ==

== ENCOUNTER 2024-10-10 08:24 | Outpatient (AMB) | payer OTHER, SELFPAY ==
--- NOTE | 2024-10-10 08:45 | MHC.PC.OV ---
Vital Signs 10/10/24 08:47 Height 4 ft 11 in Weight 193 lb 2 oz BMI 39.0 BP 120/62 Blood Pressure Location Lt brachial Position Sitting Pulse 73 Pulse Source Pulse Oximeter Temp 97.3 F Temp Source Skin Pulse Oximetry (%) 100 Oxygen Delivery Method Room Air Intake Visit Reasons: Annual Exam Intake Note: Patient is here today for a physical. Squad Sergeant Required: No Medication Specialist: Present Accompanied by: Daughter Allergies No Known Allergies Allergy (Verified 10/10/24 09:18) Medication List - Last Reconciled 10/10/24 by Remy Zarate MD albuterol sulfate 90 mcg/actuation (Ventolin HFA) 2 puffs inhalation Q4-6H PRN Tobacco use date assessed: 10/10/24 Dental Screening Dental Screen Date: 10/10/24 Did you have a dental visit in the last 12 months?: No Did you have a dental problem in the last 6 months where you did not have access to dental care?: No Was dental information given to patient?: No HPI Annual Exam HPI Details 34-year-old female presents to the office requesting an annual physical In addition she would like to discuss her rheumatological issue. Patient has been diagnosed with undifferentiated connective tissue disorder. She was following with a scissors sharpener who has since left practice. Since last office visit, patient has delivered a baby. Patient reports that at the time of her period, she notices fatigue and swelling in her ankles. Patient has 4 children and is able to function and do all activities of daily living. 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 Surgical History Previous section Family History Mother Crohn's disease IBS (irritable bowel syndrome) Mental and behavioral problem Hypertension Stroke Fibromyalgia Father Mental and behavioral problem Asthma Hypertension Maternal Uncle Colon cancer Social History Household Members: Spouse and Children Housing: Apartment Alcohol intake: never Patient Tobacco Use Status: Never used Tobacco e-Cigarette/Vaping Use: Never Used Second Hand Smoke Exposure: No service: No Current occupational status: employed 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 1. Little interest or pleasure in doing things: several days 2. Feeling down, depressed, or hopeless: several days 3. Trouble falling or staying asleep, or sleeping too much: not at all 4. Feeling tired or having little energy: not at all 5. Poor appetite or overeating: not at all 6. Feeling bad about yourself - or that you are a failure or have let yourself or your family down: not at all 7. Trouble concentrating on things, such as reading the newspaper or watching television: not at all 8. Moving or speaking so slowly that other people could have noticed. Or the opposite - being so fidgety or restless that you have been moving around a lot more than usual: not at all 9. Thoughts that you would be better off or of hurting yourself in some way: not at all Total score: 2 Depression Screening Interpretation: Negative Depression Screening Done: Yes Source: Developed by Drs. Parker Farrell, Sole Beverly, Darius Haider and colleagues, with an educational phill from [employer]. Thrive Questionnaire Date Thrive assessed: 10/08/24 I am a: Patient What is your living situation today?: I have a steady place to live Within the past 12 months, did the food you bought not last and you didn't have the money to get more?: Never true Within the past 12 months, did you worry whether your food would run out before you got money to buy more?: Never true Do you have trouble paying for medicines?: No Do you have trouble getting transportation to medical appointments?: No Do you have trouble paying your heating and electricity bill?: No Do you have trouble taking care of your child, family member or friend?: No Do you have trouble with day-to-day activities such as bathing, preparing meals, shopping, managing finances, etc.?: No Are you currently unemployed and looking for a job?: No Are you interested in more education?: No Please select the resources that you would like help with: None Currently or been in a relationship where the following occur: No concerns reported THRIVE Score: 0 AUDIT C Alcohol Use Questionnaire (AUDIT-C) 1. How often do you have a drink containing alcohol?: Never 3. How often do you have six or more drinks on one occasion?: Never Total Score: 0 PARMINDER-7 AMB Questionnaire PARMINDER-7 Date PARMINDER - 7 assessed: 10/10/24 Feeling nervous, anxious, or on edge: 0 = Not at all Not being able to stop or control worryin = Not at all Worrying too much about different things: 0 = Not at all Trouble relaxin = Not at all Being so restless that it is hard to sit still: 0 = Not at all Becoming easily annoyed or irritable: 0 = Not at all Feeling afraid as if something awful might happen: 0 = Not at all Total PARMINDER-7 score (0-4 normal; 5-9 mild; 10-14 moderate; 15-21 severe): 0 Source: Developed by Drs. Parker Farrell, Sole Beverly, Darius Haider and colleagues, with an educational phill from [employer]. Physical exam (Primary Care) Vital Signs: Last Vital Signs Temp 97.3 F 10/10/24 08:47 Pulse 73 10/10/24 08:47 BP 120/62 10/10/24 08:47 Pulse Ox 100 10/10/24 08:47 Oxygen Delivery Method Room Air 10/10/24 08:47 Care Plan Goal for BP management: Blood pressure is in range. BMI result Body Mass Index 39.0 BMI Assessment/Plan discussion: High (1 lb per week weight loss suggested.) BMI High, discussed plan: lifestyle, weight reduction and dietary Tobacco/Smoking Status: Tobacco use Status Tobacco use date assessed 10/10/24 10/10/24 08:53 Patient Tobacco Use Status Never used Tobacco 10/10/24 08:53 e-Cigarette/Vaping Use Never Used 10/10/24 08:53 PHQ-9: PHQ-9 Score PHQ-9: Total score 2 10/10/24 08:53 Depression Screening Interpretation: Negative Thrive Assessment: Date of Thrive Assessment Date Thrive assessed 10/08/24 10/10/24 08:53 Currently or been in a relationship where the following occur: No concerns reported Const General: cooperative and healthy appearing Nutritional Appearance: well nourished Orientation/consciousness: patient oriented x3 Limitations: no limitations HENMT Head: Yes normal to inspection Eyes General: appearance normal, both eyes and all related structures Neck Neck: Yes normal visual inspection Chest Chest palpation & inspection: normal palpation of entire chest wall Resp Effort & Inspection: normal respiratory effort Neuro General: patient oriented x3 Coding Level of Care Code Est Pt Level 3 (24503) Est Pt Prev Care 18-39y(02657) Diagnoses Moderate major depression F32.1 Annual physical exam Z00.00 Undifferentiated connective tissue disease M35.9 Obesity E66.9 Assessment & Plan Assessment & Plan (1) Moderate major depression: Code(s): F32.1 - Major depressive disorder, single episode, moderate Category: Medical Plan: Condition is stable. Continue current medications. (2) Annual physical exam: Code(s): Z00.00 - Encounter for general adult medical examination without abnormal findings Category: Medical Plan: Blood work has been ordered. Will call with results. (3) Undifferentiated connective tissue disease: Code(s): M35.9 - Systemic involvement of connective tissue, unspecified Category: Medical Plan: Patient was advised to follow-up with the provider who has replaced her scissors sharpener. (4) Obesity: Code(s): E66.9 - Obesity, unspecified Category: Medical Plan: Counseling on the importance of diet and exercise done. Patient would like to see weight management at [facility]. She will get me the name of the provider she would like to be referred for.
[2024-10-10 08:47] VITALS: BP 120/62; PULSE 73; TEMP 36.3; O2SAT 100; BMI 39.0
== END 2024-10-10 09:16 | disposition home or self-care (01) ==
PROVIDERS: PCP Internal Medicine; Visit Provider Internal Medicine
DX: Z00.00 Encounter for general adult medical examination without abnormal findings (principal); F32.1 Major depressive disorder, single episode, moderate; M35.9 Systemic involvement of connective tissue, unspecified; E66.9 Obesity, unspecified; Z68.39 Body mass index [BMI] 39.0-39.9, adult

== ENCOUNTER → 2024-10-10 08:24 | Outpatient (BNVA) | payer OTHER, SELFPAY | PROVIDERS: PCP Internal Medicine; Visit Provider Internal Medicine | DX: Z00.00 Encounter for general adult medical examination without abnormal findings (principal); F32.1 Major depressive disorder, single episode, moderate; M35.9 Systemic involvement of connective tissue, unspecified | CPT/HCPCS: 99212; 99395 ==

== ENCOUNTER 2025-01-23 13:15 | Outpatient (AMB) | payer OTHER, SELFPAY ==
--- NOTE | 2025-01-23 13:28 | A.OFFPC_ITS ---
Vital Signs 01/23/25 13:29 Height 4 ft 11 in Weight 198 lb 2 oz BMI 40.0 BP 132/60 Blood Pressure Location Lt brachial Position Sitting Pulse 61 Pulse Source Pulse Oximeter Temp 97.1 F Temp Source Temporal Artery Scan Pulse Oximetry (%) 99 Oxygen Delivery Method Room Air Intake Visit Reasons: follow up/ electrician powerhouse referral Intake Note: Patient is here to follow up on swelling and pain in both feet, hands and left shoulder Spark Plug Assembler Required: No Wall Steamer: Not Required per policy Accompanied by: Self / Same As Patient Allergies No Known Allergies Allergy (Verified 01/23/25 13:29) Tobacco use date assessed: 01/23/25 Dental Screening Dental Screen Date: 10/10/24 [facility] Medical History Iron deficiency anemia Moderate major depression 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 Surgical History Previous section Family History Mother Crohn's disease IBS (irritable bowel syndrome) Mental and behavioral problem Hypertension Stroke Fibromyalgia Father Mental and behavioral problem Asthma Hypertension Maternal Uncle Colon cancer Social History Household Members: Spouse and Children Housing: Apartment Alcohol intake: never Patient Tobacco Use Status: Never used Tobacco e-Cigarette/Vaping Use: Never Used Second Hand Smoke Exposure: No service: No Current occupational status: employed 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 [employer] Cognitive needs: No Hearing needs: No Vision needs: Yes (Glasses) Questionnaire Thrive Questionnaire Date Thrive assessed: 10/08/24 I am a: Patient What is your living situation today?: I have a steady place to live Within the past 12 months, did the food you bought not last and you didn't have the money to get more?: Never true Within the past 12 months, did you worry whether your food would run out before you got money to buy more?: Never true Do you have trouble paying for medicines?: No Do you have trouble getting transportation to medical appointments?: No Do you have trouble paying your heating and electricity bill?: No Do you have trouble taking care of your child, family member or friend?: No Do you have trouble with day-to-day activities such as bathing, preparing meals, shopping, managing finances, etc.?: No Are you currently unemployed and looking for a job?: No Are you interested in more education?: No Please select the resources that you would like help with: None Currently or been in a relationship where the following occur: No concerns reported THRIVE Score: 0 PARMINDER-7 AMB Questionnaire PARMINDER-7 Date PARMINDER - 7 assessed: 10/10/24 Source: Developed by Drs. Parker Farrell, Sole Beverly, Darius Haider and colleagues, with an educational phill from [employer] Physical exam (Primary Care) Vital Signs: Last Vital Signs Temp 97.1 F 01/23/25 13:29 Pulse 61 01/23/25 13:29 BP 132/60 01/23/25 13:29 Pulse Ox 99 01/23/25 13:29 Oxygen Delivery Method Room Air 01/23/25 13:29 BMI result Body Mass Index 40.0 Tobacco/Smoking Status: Tobacco use Status Tobacco use date assessed 01/23/25 01/23/25 13:34 Patient Tobacco Use Status Never used Tobacco 01/23/25 13:34 e-Cigarette/Vaping Use Never Used 01/23/25 13:34 Thrive Assessment: Date of Thrive Assessment Date Thrive assessed 10/08/24 01/23/25 13:34 Currently or been in a relationship where the following occur: No concerns reported Coding Level of Care Code Est Pt Level 4 (77884) Complex EM visit Add On G2211 Diagnoses Undifferentiated connective tissue disease M35.9 Assessment & Plan Assessment & Plan (1) Undifferentiated connective tissue disease: Code(s): M35.9 - Systemic involvement of connective tissue, unspecified Category: Medical Plan: History of Present Illness - The patient is a 34-year-old female presenting with worsening symptoms of mixed connective tissue disease, including swelling of hands, feet, and shoulder joints, persistent for three weeks. - Flare-up began three weeks ago, with swelling and tenderness in the hands, f eet, and shoulders. - Symptoms include warmth in the arms and significant discomfort during activities, especially walking. - Has been using [id number] Motrin twice a day and applying heat with minimal effect. - Previously prescribed hydroxychloroquine, which was discontinued due to . - Awaiting a new rheumatology consultation after previous specialist's departure. - Diagnosed with mixed connective tissue disease, has not used prednisone. Social History - Employed at [employer], details of work involve physical activity such as walking. - Mother of four children, indicating a busy and active family life. - Current medication use includes agfe-zzs-orhotpr Motrin. - Recent and considerations affecting medication use. Review of Systems - Musculoskeletal: Reports swelling and tenderness in hands, feet, and shoulder joints, warmth in arms. - General: Reports significant discomfort and pain during activities, especially walking. Physical Exam General: Cooperative and healthy appearing Nutritional Appearance: Well nourished Orientation/consciousness: Patient oriented x3 Limitations: No limitations Head: Normal to inspection General: Appearance normal, both eyes and all related structures Neck: Normal visual inspection Chest: Normal palpation of entire chest wall Respiratory: N ormal respiratory effort Neurology: Patient oriented x3, reports swelling in hands, feet, and shoulder joints. Results Plan 1. Mixed Connective Tissue Disease - Continue Motrin for pain relief, and heat application for symptom management. - Follow up with rheumatology appointment on February 27 for further evaluation and management options. - Consider reintroducing hydroxychloroquine post- with specialist guidance. 2. Swelling Of Limbs And Joints - Monitor symptoms and seek medical attention if condition worsens. - Use Motrin and heat application as interim relief. Discussion Notes I discussed with the patient the current management plan for her mixed connective tissue disease, emphasizing the importance of her upcoming rheumatology appointment. We reviewed the use of nebq-fqf-qmumhzd Motrin and heat application for symptom relief, recognizing the limited effect but acknowledging the necessity until further evaluation. I explained the potential for introducing medications such as prednisone and possibly resuming hydr oxychloroquine post-, pending electrician powerhouse input. We also discussed monitoring for any worsening symptoms and seeking immediate care if necessary. The patient expressed understanding and agreement with the plan. Patient Instructions - Take Motrin as needed for pain relief, twice daily. - Apply heat to swollen areas for relief. - Attend your rheumatology appointment on February 27. - Monitor symptoms, and seek care if swelling worsens or new symptoms appear. - Discuss medication options with your electrician powerhouse, especially after . Medications: New prednisone 1 mg PO DAILY 30 tabs 0RF
[2025-01-23 13:29] VITALS: BP 132/60; PULSE 61; TEMP 36.2; O2SAT 99; BMI 40.0
== END 2025-01-23 13:48 | disposition home or self-care (01) ==
LOC: HO.HMCH 13:16
PROVIDERS: PCP Internal Medicine; Visit Provider Internal Medicine
DX: M35.9 Systemic involvement of connective tissue, unspecified (principal)

== ENCOUNTER → 2025-01-23 13:15 | Outpatient (BNVA) | payer OTHER, SELFPAY | PROVIDERS: PCP Internal Medicine; Visit Provider Internal Medicine | DX: M35.9 Systemic involvement of connective tissue, unspecified (principal) | CPT/HCPCS: 99212 ==

== ENCOUNTER 2025-04-10 09:21 | Outpatient (AMB) | payer OTHER, SELFPAY ==
--- NOTE | 2025-04-10 09:34 | A.OFFVIS_ITS ---
Vital Signs 04/10/25 09:54 Height 4 ft 11 in Weight 198 lb 6.656 oz BMI 40.1 BP 110/70 Blood Pressure Location Lt brachial Position Sitting Pulse 79 Pulse Source Pulse Oximeter Pulse Oximetry (%) 99 Oxygen Delivery Method Room Air Intake Visit Reasons: joint pain Intake Note: Patient presents for UCTD. Accompanied by: kids Allergies No Known Allergies Allergy (Verified 04/10/25 09:54) HPI HPI joint pain: Details: After giving last year she had more joint pain in mutliple joints. PCP prescribed Prednisone but patient only took it for 2-3 days without meaningful benefit. SHe stopped it before course was suppose to end because she did not want to gain weight SHe recently had left shoulder/neck pain Swelling in hands and feet. SHe has numbness in bilateral hands and feet. 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 MS 5 minutes. 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 Surgical History Previous section Family History Mother Crohn's disease IBS (irritable bowel syndrome) Mental and behavioral problem Hypertension Stroke Fibromyalgia Father Mental and behavioral problem Asthma Hypertension Maternal Uncle Colon cancer Social History Household Members: Spouse and Children Housing: Apartment Alcohol intake: never Patient Tobacco Use Status: Never used Tobacco e-Cigarette/Vaping Use: Never Used Second Hand Smoke Exposure: No service: No Current occupational status: employed 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 Good respiratory effort Skin: She has erythematous circular lesions under abdominal folds MSK: Tender to palpate right 3rd MCP, 3rd PIP, left 3rd MCP, 2nd PIP. No synovitis. She is able to make a fist. Normal range of motion of upper extremities and lower extremities. Positive Phalen's test right. Assessment & Plan Assessment & Plan (1) Neuropathy: Comment: Bilateral upper extremities and lower extremities. She has positive Phalen's test, which is a clinical sign of carpal tunnel syndrome. Unclear etiology of lower extremity numbness. I will start workup to evaluate for metabolic neuropathy. Code(s): G62.9 - Polyneuropathy, unspecified Category: Medical Plan: Labs ordered: TSH, hemoglobin A1c, vitamin B12 EMG of bilateral upper extremities and lower extremities ordered Return to clinic in 1 month (2) Polyarthralgia: Comment: Chronic polyarthralgias since age 19 affecting hands, wrists, feet progressing to involve ankles more recently. Pain in joints has increased after the of her child who is now 1 year. No synovitis on exam. History significant for recurrent miscarriages x4. Prior workup has revealed low titer positive ALEX 1:80, negative anti CCP antibody, rheumatoid factor and SLE specific antibodies/disease activity markers. Dr. Fall prescribed hydroxychloroquine, which she took for 2 weeks but then discontinued after she became . At this time she does not have clinical evidence of inflammatory arthritis. We discussed further workup with imaging and labs. Code(s): M25.50 - Pain in unspecified joint Category: Medical Plan: X-ray bilateral hands, feet and ankles ordered to evaluate for inflammatory arthritis Labs ordered including inflammatory markers, SLE workup and APS workup I have asked her to keep a log of symptoms Consider MSK ultrasound Return to clinic in 1 month (3) ALEX positive: Comment: Positive ALEX 1-80 Code(s): R76.8 - Other specified abnormal immunological findings in serum Category: Medical Plan: See above (4) History of recurrent miscarriages: Comment: She has had 4 miscarriages and 4 live births. February 2023 workup revealed negative beta 2 glycoprotein antibody and cardiolipin antibodies. Lupus anticoagulant was not checked Code(s): N96 - Recurrent loss Category: Medical Plan: APS workup ordered (5) Rash: Comment: She has lesions on her abdominal fold concerning for a hydradenitis suppurativa Code(s): R21 - Rash and other nonspecific skin eruption Category: Medical Plan: I recommend that she follow up with PCP for dermatology referral Orders: Orders UA ClnCatch+Micro w/rflx Cult Today R76.0 - Raised antibody titer Protein Creatinine Ratio, Ur Today R76.0 - Raised antibody titer Creatinine Today R76.0 - Raised antibody titer Sm Sm/HIDE SHAKER Antibodies Today R76.0 - Raised antibody titer Vitamin B12 Today G62.9 - Polyneuropathy, unspecified NE electromyogram (EMG) Today G62.9 - Polyneuropathy, unspecified XR Hand Bilat min 3v Today M25.50 - Pain in unspecified joint, M35.9 - Systemic involvement of connective tissue, unspecified, R76.8 - Other specified abnormal immunological findings in serum XR Ankle Baltazar min 3V Today M25.50 - Pain in unspecified joint, M35.9 - Systemic involvement of connective tissue, unspecified, R76.8 - Other specified abnormal immunological findings in serum Lupus Anticoagulant Panel Today N96 - Recurrent loss Complete Blood Count Auto Diff Today R76.0 - Raised antibody titer Alanine Aminotransferase Today R76.0 - Raised antibody titer Aspartate Amino Transferase Today R76.0 - Raised antibody titer C Reactive Protein Today R76.0 - Raised antibody titer Anti DNA DS Antibody Today R76.0 - Raised antibody titer Erythrocyte Sedimentation Rate Today R76.0 - Raised antibody titer Complement C3 Today R76.0 - Raised antibody titer Complement C4 Today R76.0 - Raised antibody titer TSH reflex Free T4 Today G62.9 - Polyneuropathy, unspecified Hemoglobin A1c Today G62.9 - Polyneuropathy, unspecified NE nerve conduction velocity Today G62.9 - Polyneuropathy, unspecified XR Foot Baltazar 3V Today M25.50 - Pain in unspecified joint, M35.9 - Systemic involvement of connective tissue, unspecified, R76.8 - Other specified abnormal immunological findings in serum Cardiolipin Antibodies Today D68.61 - Antiphospholipid syndrome Beta-2 Glycoprotein Antibody Today D68.61 - Antiphospholipid syndrome Coding Level of Care Code Est Pt Level 4 (35715) Complex EM visit Add On G2211 Diagnoses Neuropathy G62.9 Polyarthralgia M25.50 ALEX positive R76.8 History of recurrent miscarriages N96 Rash R21
[2025-04-10 09:54] VITALS: BP 110/70; PULSE 79; O2SAT 99; BMI 40.1
== END 2025-04-10 10:59 | disposition home or self-care (01) ==
LOC: HO.RHES 09:23
PROVIDERS: PCP Internal Medicine; Visit Provider Student in an Organized Health Care Education/Training Program
DX: G62.9 Polyneuropathy, unspecified (principal); M25.50 Pain in unspecified joint; R76.8 Other specified abnormal immunological findings in serum; N96 Recurrent pregnancy loss; R21 Rash and other nonspecific skin eruption
CPT/HCPCS: 99214

== ENCOUNTER → 2025-04-10 09:21 | Outpatient (BNVA) | payer OTHER, SELFPAY | PROVIDERS: PCP Internal Medicine; Visit Provider Student in an Organized Health Care Education/Training Program | DX: R21 Rash and other nonspecific skin eruption (principal); M25.50 Pain in unspecified joint; G62.9 Polyneuropathy, unspecified; R76.8 Other specified abnormal immunological findings in serum; N96 Recurrent pregnancy loss; R76.0 Raised antibody titer; M35.9 Systemic involvement of connective tissue, unspecified | CPT/HCPCS: 99212 ==

== ENCOUNTER 2025-04-10 11:04 | Outpatient (REF) | payer OTHER, SELFPAY ==
[2025-04-10 13:13] LABS: Appearance Urine Clear; Glucose Urine UA Negative (Negative); PH 7.5 (5.0-9.0); Specific Gravity - Urine 1.010 (1.005-1.025)
[2025-04-10 13:26] LABS: MANUAL DIFF FLAG NO
[2025-04-10 13:29] LABS: Hematocrit 34.4 % (37.0-47.0); Hemoglobin 9.8 g/dl (12.0-16.0); Imm Gran Abs Auto 0.02 X10*3/uL (0.00-0.03); Imm Gran Pct Auto 0.4 % (0.0-0.4); Lymphocytes Absolute Auto 1.8 X10*3/uL (1.2-4.9); Mean Corpuscular HGB Conc 28.5 g/dl (31.0-35.0); Mean Corpuscular Hemoglobin 19.4 pg (27.0-33.0); Mean Corpuscular Volume 68.1 fL (80.0-98.0); NRBC Abs Auto 0.000 X10*3/uL (0.0-0.012); NRBC Pct Auto 0.0 /100WBC (0.0-0.2); Platelet Count 186 X10*3/uL (160-400); Red Blood Count 5.05 X10*6/uL (4.20-5.50); White Blood Count 4.5 X10*3/uL (4.8-10.8)
[2025-04-10 13:40] LABS: Hemoglobin A1C 92.8803 umol/L; Total Hemoglobin (HGBA1C) 2693.7140 umol/L
[2025-04-10 14:14] LABS: Total Protein Urine Random < 7 mg/dL (<12)
[2025-04-10 18:11] LABS: Alanine Aminotransferase 25 U/L (0-31); Aspartate Amino Transferase 30 U/L (5-31); Estimated Glomerular Filt Rate > 60
[2025-04-10 18:31] LABS: Vitamin B12 490 pg/mL (200-900)
[2025-04-10 18:54] LABS: Free T4 (Free Thyroxine) 1.19 ng/dL (0.71-1.85)
[2025-04-11 23:08] LABS: SM/Ribonucleoprotein Ab <1.0 NEG AI (<1.0 NEG); Smith Protein <1.0 NEG AI (<1.0 NEG)
== END 2025-04-10 11:05 | disposition home or self-care (01) ==
LOC: HO.HKASLDS 11:04
PROVIDERS: Visit Provider Internal Medicine Rheumatology
DX: R76.0 Raised antibody titer (principal); G62.9 Polyneuropathy, unspecified
CPT/HCPCS: 36415; 81001; 82565; 82570; 82607; 83036; 84156; 84439; 84443; 84450; 84460; 85025; 85652; 86140; 86160; 86225; 86235

== ENCOUNTER 2025-04-12 07:37 | Outpatient (REF) | payer OTHER, SELFPAY ==
--- NOTE | ~2025-04-12 | XR_ITS ---
EXAMINATION: XR FOOT 3 OR MORE VIEWS BILATERAL HISTORY: M25.50 - Pain in unspecified joint COMPARISON: There are no prior studies available for comparison. FINDINGS: Six views of the bilateral feet are submitted. Osseous mineralization is normal. There is no fracture or dislocation. The joint spaces are preserved. The soft tissues are unremarkable. XR/XR Foot Baltazar 3V IMPRESSION: Unremarkable examination of the bilateral feet. Electronically signed by: Parker Gallardo MD 04/14/2025 08:42 AM EDT
--- NOTE | ~2025-04-12 | XR_ITS ---
EXAMINATION: XR HAND 3 VIEWS BILATERAL HISTORY: M25.50 - Pain in unspecified joint COMPARISON: There are no prior studies available for comparison. FINDINGS: Six views of the bilateral hands are submitted. Osseous mineralization is normal. There is no fracture or dislocation. The joint spaces are preserved. The soft tissues are unremarkable. XR/XR Hand Bilat min 3v IMPRESSION: Unremarkable examination of the bilateral hands. Electronically signed by: Parker Gallardo MD 04/14/2025 08:32 AM EDT
--- NOTE | ~2025-04-12 | XR_ITS ---
EXAMINATION: XR ANKLE 3 VIEWS BILATERAL HISTORY: M25.50 - Pain in unspecified joint COMPARISON: There are no prior studies available for comparison. FINDINGS: Six views of the bilateral ankles are submitted. Osseous mineralization is normal. There is no fracture or dislocation. The joint spaces are preserved. The soft tissues are unremarkable. XR/XR Ankle Baltazar min 3V IMPRESSION: Unremarkable examination of the bilateral ankles. Electronically signed by: Parker Gallardo MD 04/14/2025 08:28 AM EDT
[2025-04-12 09:08] LABS: Hematocrit 32.7 % (37.0-47.0); Hemoglobin 9.9 g/dl (12.0-16.0); Mean Corpuscular HGB Conc 30.3 g/dl (31.0-35.0); Mean Corpuscular Hemoglobin 20.1 pg (27.0-33.0); Mean Corpuscular Volume 66.3 fL (80.0-98.0); NRBC Abs Auto 0.000 X10*3/uL (0.0-0.012); NRBC Pct Auto 0.0 /100WBC (0.0-0.2); Platelet Count 175 X10*3/uL (160-400); Red Blood Count 4.93 X10*6/uL (4.20-5.50); White Blood Count 4.4 X10*3/uL (4.8-10.8)
[2025-04-12 09:41] LABS: Alanine Aminotransferase 27 U/L (0-31); Albumin Level 4.4 g/dL (3.5-5.0); Alkaline Phosphatase 113 U/L (39-117); Anion Gap 16 (12-20); Aspartate Amino Transferase 27 U/L (5-31); Blood Urea Nitrogen 13 mg/dL (9-16); Calcium 9.1 mg/dL (8.4-10.2); Carbon Dioxide 22 mmol/L (22-29); Chloride 107 mmol/L (96-108); Cholesterol 166 mg/dL (<200); Estimated Glomerular Filt Rate > 60; HDL Cholesterol 35 mg/dL (>40); Potassium 4.1 mmol/L (3.3-5.1); Sodium 141 mmol/L (135-145); Total Protein 7.4 g/dL (6.5-8.0); Triglycerides 167 mg/dL (<150)
[2025-04-12 09:51] LABS: Appearance Urine Clear; Glucose Urine UA Negative (Negative); PH 6.5 (5.0-9.0); Specific Gravity - Urine 1.020 (1.005-1.025)
[2025-04-12 10:06] LABS: Thyroid Stimulating Hormone 0.01 uIU/mL (0.32-4.0)
== END 2025-04-12 07:38 | disposition home or self-care (01) ==
LOC: HO.LAB 07:37
PROVIDERS: Absent Provider Internal Medicine; PCP Internal Medicine; Visit Provider Internal Medicine Rheumatology
DX: D68.61 Antiphospholipid syndrome (principal); R79.89 Other specified abnormal findings of blood chemistry; R76.8 Other specified abnormal immunological findings in serum; M35.9 Systemic involvement of connective tissue, unspecified; E66.9 Obesity, unspecified; M25.50 Pain in unspecified joint; N96 Recurrent pregnancy loss; F32.1 Major depressive disorder, single episode, moderate
CPT/HCPCS: 36415; 73130; 73610; 73630; 80048; 80061; 80076; 81003; 84443; 85027; 85597; 85598; 85613; 85730; 86146; 86147

== ENCOUNTER → 2025-04-12 07:42 | Outpatient (BNV) | payer OTHER, SELFPAY | PROVIDERS: Absent Provider Internal Medicine; PCP Internal Medicine; Visit Provider Radiology Diagnostic Radiology | DX: M79.641 Pain in right hand (principal); M79.642 Pain in left hand; M25.571 Pain in right ankle and joints of right foot; M25.572 Pain in left ankle and joints of left foot | CPT/HCPCS: 73130; 73610; 73630 ==

== ENCOUNTER 2025-05-07 15:16 | Outpatient (AMB) | payer OTHER, SELFPAY ==
--- NOTE | 2025-05-07 15:17 | A.OFFPC_ITS ---
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 Medical Spa: Not Required per policy Accompanied by: Self / Same As Patient Allergies No Known Allergies Allergy (Verified 05/07/25 15:18) Tobacco use date assessed: 05/07/25 Dental Screening Dental Screen Date: 10/10/24 [facility] Medical History (Updated 04/10/25 @ 21:54 by Jimmy Werner MD) History of recurrent miscarriages Iron deficiency anemia Moderate major depression Undifferentiated connective tissue disease Surgical History Previous section Family History Mother Crohn's disease IBS (irritable bowel syndrome) Mental and behavioral problem Hypertension Stroke Fibromyalgia Father Mental and behavioral problem Asthma Hypertension Maternal Uncle Colon cancer Social History Household Members: Spouse and Children Housing: Apartment Alcohol intake: never Patient Tobacco Use Status: Never used Tobacco e-Cigarette/Vaping Use: Never Used Second Hand Smoke Exposure: No service: No Current occupational status: employed 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 Parker Farrell, Sole Beverly, Darius Haider and colleagues, with an educational phill from [employer]. Physical exam (Primary Care) Tobacco/Smoking Status: Tobacco use Status Tobacco use date assessed 05/07/25 05/07/25 15:18 Patient Tobacco Use Status Never used Tobacco 05/07/25 15:18 e-Cigarette/Vaping Use Never Used 05/07/25 15:18 Thrive Assessment: Date of Thrive Assessment Date Thrive assessed 10/08/24 05/07/25 15:18 Telehealth Telehealth Telehealth Platform: Telephone Location of provider rendering services: practice address Location of patient: address on file Patient Identification confirmed using: Name, : Yes Telehealth method: voice only Patient verbally consented to treatment: Yes Patient verbally consented to billing insurance company: Yes Patient informed of any privacy concerns related to visit: Yes Minutes spent on Phone/Video with Pt.: 20 Coding Level of Care Code Est Pt Level 4 (56104) Complex EM visit Add On G2211 Diagnoses Hyperthyroidism E05.90 Assessment & Plan Assessment & Plan (1) Hyperthyroidism: Code(s): E05.90 - Thyrotoxicosis, unspecified without thyrotoxic crisis or storm Plan: History of Present Illness - The patient is a 34-year-old female presenting with concerns regarding anemia and thyroid function. - Anemia: The patient has a history of low hemoglobin levels, with a recent measurement of 9 g/dL on April 12. She has experienced low hemoglobin levels since August of the previous year. - She received iron infusions during her , which was 15 months ago, but has been inconsistent with oral iron supplementation since then. - Hyperthyroidism: The patient's thyroid function tests indicate a suppressed TSH level, suggesting elevated thyroid hormone levels. - She reports occasional heat or cold intolerance and irregular menstrual cycles, which may be related to her thyroid condition. - Dyslipidemia: The patient has been informed of low HDL cholesterol levels and advised to engage in regular exercise. Social History Review of Systems - Endocrine: Reports occasional heat or cold intolerance. Denies tremors or shakiness. - Reproductive: Reports irregular menstrual cycles with variability in timing and duration. Physical Exam Results - Labs: Hemoglobin level of 9 g/dL on April 12, suppressed TSH indicating hyperthyroidism, low HDL cholesterol. Plan 1. Anemia - The patient is advised to take oral iron supplements daily or at least five days a week to manage anemia. - A prescription for iron tablets has been sent to the patient's preferred pharmacy. 2. Hyperthyroidism - Repeat thyroid function tests are planned to confirm the diagnosis of hyperthyroidism. - Referral to an hospital personnel director for further evaluation and management is recommended. 3. Dyslipidemia - The patient is encouraged to engage in regular physical activity to improve HDL cholesterol levels. Discussion Notes I discussed with the patient the importance of adhering to iron supplementation to manage her anemia and explained how low hemoglobin levels can strain the heart over time. We also talked about the need for repeat thyroid function tests and a referral to an hospital personnel director to address her suppressed TSH levels. Additionally, I advised her on lifestyle modifications to improve her HDL cholesterol levels. Patient Instructions - Take iron supplements daily or at least five days a week. - Complete the repeat thyroid function tests as ordered. - Follow up with the hospital personnel director as recommended. - Engage in regular physical activity to improve cholesterol levels. Orders: Orders Triiodothyronine T3 Free Today E05.90 - Thyrotoxicosis, unspecified without thyrotoxic crisis or storm TSH reflex Free T4 Today E05.90 - Thyrotoxicosis, unspecified without thyrotoxic crisis or storm Triiodothyronine T3 Total Today E05.90 - Thyrotoxicosis, unspecified without thyrotoxic crisis or storm Medications: New iron, carbonyl (Feosol) 45 mg PO BEDTIME 90 tabs 1RF
== END 2025-05-07 16:51 | disposition home or self-care (01) ==
LOC: HO.HMCH 15:16
PROVIDERS: PCP Internal Medicine; Visit Provider Internal Medicine
DX: E05.90 Thyrotoxicosis, unspecified without thyrotoxic crisis or storm (principal)

== ENCOUNTER → 2025-05-07 15:16 | Outpatient (BNVA) | payer OTHER, SELFPAY | PROVIDERS: PCP Internal Medicine; Visit Provider Internal Medicine | DX: E05.90 Thyrotoxicosis, unspecified without thyrotoxic crisis or storm (principal); E78.5 Hyperlipidemia, unspecified; D64.9 Anemia, unspecified | CPT/HCPCS: 99212 ==

== ENCOUNTER 2025-05-17 07:39 | Outpatient (REF) | payer OTHER, SELFPAY ==
[2025-05-17 10:11] LABS: Free T4 (Free Thyroxine) 1.21 ng/dL (0.71-1.85)
== END 2025-05-17 07:40 | disposition home or self-care (01) ==
LOC: HO.LAB 07:39
PROVIDERS: PCP Internal Medicine; Visit Provider Internal Medicine
DX: E05.90 Thyrotoxicosis, unspecified without thyrotoxic crisis or storm (principal)
CPT/HCPCS: 36415; 84439; 84443; 84480; 84481

== ENCOUNTER 2025-06-03 13:20 | Outpatient (AMB) | payer OTHER, SELFPAY ==
[2025-06-03 13:23] VITALS: BP 126/78; PULSE 82; O2SAT 100; BMI 40.3
--- NOTE | 2025-06-03 13:23 | MHC.OFFVIS ---
Vital Signs 06/03/25 13:23 Height 4 ft 11 in Weight 199 lb 8.293 oz BMI 40.3 BP 126/78 Blood Pressure Location Lt brachial Position Sitting Pulse 82 Pulse Source Pulse Oximeter Pulse Oximetry (%) 100 Oxygen Delivery Method Room Air Intake Visit Reasons: Thyrotoxicosis Intake Note: Patient present today for Thyrotoxicosis office visit. Operations And Maintenance Technician Required: No Accompanied by: Self / Same As Patient Allergies No Known Allergies Allergy (Verified 06/03/25 13:27) Medication List - Last Reconciled 06/03/25 by Margret Morfin MD iron, carbonyl (Feosol) 45 mg PO BEDTIME prednisone 1 mg PO DAILY HPI Comments Details: 34-year-old female coming in today for initial evaluation of subclinical hyperthyroidism. Labs from March 2025 showed TSH was low at 0.01 with normal free T4 of 1.19, labs repeated 05/17/2025 showed suppressed TSH with normal free T4 1.21, high free T3 of 4.7, normal total T3 of 176. Reports heat intolerance. sometime within the last 6 months. dry skin. low energy worsening. rerports anxiety and irritability. Patient currently denies diarrhea or constipation, hair loss, palpitation, weight changes, changes in appearance of eyes or vision changes (does have some dry eyes) , tremors, increased diaphoresis.? Pregnancies: 9 , 4 live kids, 4 miscarriages youngest 15 months old, not LMP: 05/12/25, monthly periods but delayed by a few days each cycle No preceding viral infection No contrast exposure No fractures No CAD, no arrthmias Patient denies any difficulty swallowing, pain on swallowing or voice changes or difficulty breathing. Patient denies any history of childhood neck radiation. Denies having ever used lithium, amiodarone or biotin supplements. Patient denies any family history of thyroid cancer or thyroid disease. 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 [employer] never smoker No alcohol or drug use Physical exam General: sitting comfortably in no acute distress HEENT: normocephalic/atraumatic, EOM intact, moist oral mucosa Neck: supple, prominent thyroid gland, possible right-sided nodule Cardiac: normal heart sounds Pulm: normal breath sounds B/L, no added breath sounds Abd: not distended, no tenderness Extremities: no edema, no signs of myxedema Laboratory Tests 10/22/22 04/10/25 04/12/25 10:43 11:17 08:43 WBC 4.4 L Hgb 9.9 L Hct 32.7 L Plt Count 175 AST 27 ALT 27 TSH 1.36 0.01 L 0.01 L Free T4 1.19 Free T3 Total T3 05/17/25 07:46 WBC Hgb Hct Plt Count AST ALT TSH < 0.01 L Free T4 1.21 Free T3 4.7 H Total T3 176 [facility] Medical History (Updated 06/03/25 @ 13:50 by Margret Morfin MD) Thyromegaly Low TSH level History of recurrent miscarriages Iron deficiency anemia Moderate major depression Undifferentiated connective tissue disease Surgical History Previous section Family History Mother Crohn's disease IBS (irritable bowel syndrome) Mental and behavioral problem Hypertension Stroke Fibromyalgia Father Mental and behavioral problem Asthma Hypertension Maternal Uncle Colon cancer Social History Household Members: Spouse and Children Housing: Apartment Alcohol intake: never Patient Tobacco Use Status: Never used Tobacco e-Cigarette/Vaping Use: Never Used Second Hand Smoke Exposure: No service: No Current occupational status: employed 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 Labs from March 2025 showed TSH was low at 0.01 with normal free T4 of 1.19, labs repeated 05/17/2025 showed suppressed TSH with normal free T4 1.21, high free T3 of 4.7, normal total T3 of 176. No prior history of thyroid dysfunction. She does have some symptoms such as heat intolerance and some irregularity with periods and tiredness, however on exam she is not tremulous, heart rate is normal, she does have a stare but no exophthalmos to suggest thyroid eye disease. She does have a prominent gland on my exam possibly a right-sided thyroid nodule. At this time I discussed that we need to do further investigation to look at the etiology of subclinical hyperthyroidism. I discussed with her most common differentials include autoimmune thyroid disease, especially given she has a history of autoimmune disease, she could possibly have autoimmune thyroid disease. Other differentials include toxic multinodular goiter or toxic adenoma. We are also going to get an ultrasound. Depending on her initial blood work in the ultrasound results, I will see if she needs a thyroid uptake and scan. She has a young [id number] baby however she is not . I do not think it is thyroiditis given no preceding viral symptoms, plus it got worse from March to April. She had no recent contrast exposure. For now labs were consistent with subclinical hyperthyroidism but given TSH is less than 0.1, she would qualify for treatment. Plan: -ordered TSH, free T4, total T3, TSI, TSH receptor and TPO antibody levels -ordered ultrasound of the thyroid -follow up in 4 weeks to discuss results Plan I spent 45 minutes in reviewing the record, seeing the patient and documenting in the medical record. Orders: Orders Free T4 (Free Thyroxine) Today R79.89 - Other specified abnormal findings of blood chemistry Thyroid Stimulating Immunoglob Today R79.89 - Other specified abnormal findings of blood chemistry Thyrotropin Receptor Antibody Today R79.89 - Other specified abnormal findings of blood chemistry Thyroid Peroxidase Antibodies Today R79.89 - Other specified abnormal findings of blood chemistry Triiodothyronine T3 Total Today R79.89 - Other specified abnormal findings of blood chemistry Thyroid Stimulating Hormone Today R79.89 - Other specified abnormal findings of blood chemistry US thyroid Today E01.0 - Iodine-deficiency related diffuse (endemic) goiter, R79.89 - Other specified abnormal findings of blood chemistry Patient Instructions: Do blood work, orders are in Do ultrasound of the thyroid, you can call the [facility] in connect to ultrasound to schedule this as soon as possible, otherwise somebody we will call you to schedule it Please try to do the above as soon as possible we will communicate if you need any further workup prior to your next follow up end of the month Coding Level of Care Code New Pt Level 4 (61638) Diagnoses Low TSH level R79.89 Time Spent (min) 45
== END 2025-06-03 13:58 | disposition home or self-care (01) ==
LOC: HO.ENCR 13:21
PROVIDERS: PCP Internal Medicine; Visit Provider Student in an Organized Health Care Education/Training Program
DX: R79.89 Other specified abnormal findings of blood chemistry (principal)
CPT/HCPCS: 99204

== ENCOUNTER 2025-06-03 13:20 | Outpatient (REF) | payer OTHER, SELFPAY ==
[2025-06-03 15:56] LABS: Free T4 (Free Thyroxine) 1.13 ng/dL (0.71-1.85); Thyroid Stimulating Hormone < 0.01 uIU/mL (0.32-4.0)
== END 2025-06-03 13:21 | disposition home or self-care (01) ==
LOC: HO.LAB 13:20
PROVIDERS: PCP Internal Medicine; Visit Provider Student in an Organized Health Care Education/Training Program
DX: R79.89 Other specified abnormal findings of blood chemistry (principal); R68.89 Other general symptoms and signs; N92.6 Irregular menstruation, unspecified; R53.83 Other fatigue; Z79.52 Long term (current) use of systemic steroids
CPT/HCPCS: 36415; 83520; 84439; 84443; 84445; 84480; 86376; 99202

== ENCOUNTER 2025-06-23 14:40 | Outpatient (REF) | payer OTHER, SELFPAY ==
--- NOTE | ~2025-06-23 | US_ITS ---
EXAMINATION: US THYROID CLINICAL INFORMATION: R 79.89. Abnormal findings on blood chemistry. COMPARISON: None available. TECHNIQUE: Linear transducer grayscale and color Doppler examination with attention to the region of the thyroid. FINDINGS: SIZE: Measurements of the thyroid lobes and nodules are given in sagittal, anteroposterior and transverse dimensions respectively. Right Thyroid Lobe: 5.0 x 1.0 x 2.4 cm, volume 9.9 mL. Parenchyma: The gland echotexture is heterogeneous. Thyroid vascularity is normal. Left Thyroid Lobe: 4.7 x 1.4 x 1.6 cm, volume 5.5 mL. Parenchyma: The gland echotexture is heterogeneous. Thyroid vascularity is normal. Isthmus: 0.4 cm in maximum AP dimension. Estimated total number of nodules greater than or equal to 1 cm: 0. Erp Manager nodules are described as follows: NODES: No lymphadenopathy is seen in the tissue surrounding the thyroid gland. US/US thyroid IMPRESSION: ACR TI-RADS category: 1 ACR TI-RADS RECOMMENDATION REFERENCE: Ultrasound-guided fine-needle aspiration, followup ultrasound, no further follow up. * TR1 (0 point) and TR2 (2 points): No FNA or follow up. * TR3 (3 points): FNA if more than or equal to 2.5 cm in maximum dimension, followup ultrasound in 1, 3 and 5 years if 1.5 to 2.4 cm in maximum dimension. * TR4 (4-6 points): FNA if more than or equal to 1.5 cm in maximum dimension, followup ultrasound in 1, 2, 3 and 5 years if 1 to 1.4 cm in maximum dimension. * TR5 (more than or equal to 7 points): FNA if more than or equal to 1 cm in maximum dimension, followup ultrasound every year for 5 years if 0.5 to 0.9 cm in maximum dimension. * TR3, TR4 or TR5 nodules that are below the size threshold for followup receive no follow up. Electronically signed by: Peter Goodrich MD 06/24/2025 07:07 AM EDT
== END 2025-06-23 14:41 | disposition home or self-care (01) ==
LOC: HO.US 14:40
PROVIDERS: PCP Internal Medicine; Visit Provider Student in an Organized Health Care Education/Training Program
DX: R79.89 Other specified abnormal findings of blood chemistry (principal); E01.0 Iodine-deficiency related diffuse (endemic) goiter
CPT/HCPCS: 76536

== ENCOUNTER → 2025-06-23 14:45 | Outpatient (BNV) | payer OTHER, SELFPAY | PROVIDERS: PCP Internal Medicine; Visit Provider Radiology Diagnostic Radiology | DX: R79.89 Other specified abnormal findings of blood chemistry (principal) | CPT/HCPCS: 76536 ==

== ENCOUNTER 2025-06-27 15:19 | Outpatient (AMB) | payer OTHER, SELFPAY ==
--- NOTE | 2025-06-27 15:36 | A.OFFVIS_ITS ---
Vital Signs 06/27/25 15:39 Height 4 ft 11 in Weight 196 lb 3.382 oz BMI 39.6 BP 114/76 Blood Pressure Location Rt brachial Position Sitting Pulse 75 Pulse Source Pulse Oximeter Pulse Oximetry (%) 96 Oxygen Delivery Method Room Air Intake Visit Reasons: Thyrotoxicosis- pt Intake Note: Patient present today for Thyrotoxicosis office visit. Patient last seen by DR Margret Morfin MD. 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 Last seen by Dr. Morfin on 06/03/2025. This is the 1st time I see this patient. Labs from March 2025 showed TSH was low at 0.01 with normal free T4 of 1.19, labs repeated 05/17/2025 showed suppressed TSH with normal free T4 1.21, high free T3 of 4.7, normal total T3 of 176. Reports heat intolerance. sometime within the last 6 months. dry skin. low energy worsening. rerports anxiety and irritability. Patient currently denies diarrhea or constipation, hair loss, palpitation, weight changes, changes in appearance of eyes or vision changes (does have some dry eyes) , tremors, increased diaphoresis. Pregnancies: 9 , 4 live kids, 4 miscarriages youngest 15 months old, not LMP: 05/12/25, monthly periods but delayed by a few days each cycle No preceding viral infection No contrast exposure No fractures No CAD, no arrthmias Patient denies any difficulty swallowing, pain on swallowing or voice changes or difficulty breathing. Patient denies any history of childhood neck radiation. Denies having ever used lithium, amiodarone or biotin supplements. Patient denies any family history of thyroid cancer. 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 Repeated blood work showed again suppressed TSH and normal free T4 (1.21). She reports no recent changes in medical history, no new medications. She is not taking biotin No plans for further pregnancies. Physical exam: General: Well appearing. NAD. Neck/Thyroid: Thyroid enlarged, no nodules. Eyes: No conjunctival injection, mild lid lag, and mildproptosis CV: RRR, no murmur. No edema. Resp: Lungs clear to auscultation bilaterally Abdomen: Soft, nontender. nondistended Extremities/Neuro: No weakness or tremor of outstretched hands Laboratory Tests 04/10/25 04/12/25 05/17/25 11:17 08:43 07:46 TSH 0.01 L 0.01 L < 0.01 L Free T4 1.19 1.21 Free T3 4.7 H Total T3 176 Thyroid US 06/23/25 FINDINGS: SIZE: Measurements of the thyroid lobes and nodules are given in sagittal, anteroposterior and transverse dimensions respectively. Right Thyroid Lobe: 5.0 x 1.0 x 2.4 cm, volume 9.9 mL. Parenchyma: The gland echotexture is heterogeneous. Thyroid vascularity is normal. Left Thyroid Lobe: 4.7 x 1.4 x 1.6 cm, volume 5.5 mL. Parenchyma: The gland echotexture is heterogeneous. Thyroid vascularity is normal. Isthmus: 0.4 cm in maximum AP dimension. Estimated total number of nodules greater than or equal to 1 cm: 0. Screen Tender Helper nodules are described as follows: NODES: No lymphadenopathy is seen in the tissue surrounding the thyroid gland. IMPRESSION: ACR TI-RADS category: 1 PFSH Medical History Thyromegaly Low TSH level History of recurrent miscarriages Iron deficiency anemia Moderate major depression Undifferentiated connective tissue disease Surgical History Previous section Family History Mother Crohn's disease IBS (irritable bowel syndrome) Mental and behavioral problem Hypertension Stroke Fibromyalgia Father Mental and behavioral problem Asthma Hypertension Maternal Uncle Colon cancer Social History Household Members: Spouse and Children Housing: Apartment Alcohol intake: never Patient Tobacco Use Status: Never used Tobacco e-Cigarette/Vaping Use: Never Used Second Hand Smoke Exposure: No service: No Current occupational status: employed 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 [employer] Cognitive needs: No Hearing needs: No Vision needs: Yes (Glasses) Physical Exam Vital Signs: Last Vital Signs Pulse 75 06/27/25 15:39 BP 114/76 06/27/25 15:39 Pulse Ox 96 06/27/25 15:39 Oxygen Delivery Method Room Air 06/27/25 15:39 BMI result Body Mass Index 39.6 Assessment & Plan Assessment & Plan (1) Graves' disease: Code(s): E05.00 - Thyrotoxicosis with diffuse goiter without thyrotoxic crisis or storm Category: Medical Plan: Assessment Patient has ongoing symptoms of heat/cold intolerance, irritability, anxiety, variable menstrual cycles, and weight fluctuations, and persistently suppressed TSH, elevated TSI and TRAb, low TPO, no thyroid nodules on ultrasound, which is consistent with Graves disease. Previously considered differential diagnosis like toxic thyroid nodule, or thyroiditis seems less likely as stripe and TSI is positive. She does have mild lid lag and mild proptosis on exam, but she does not have any diplopia or other vision changes that she reported. Plan Start methimazole 5mg daily (low dose) to control hyperthyroidism and minimize risk of iatrogenic hypothyroidism. Educated patient on side effects: agranulocytosis (fever/sore throat warning), hepatotoxicity, GI upset. Provided written instructions. Continue metoprolol as needed for symptom control (if already prescribed). Monitor for improvement in symptoms (heat intolerance, irritability, menses). Labs: Order TSH and Free T4 in 6 weeks to assess response. No biotin or multivitamin supplementation needed at this time (biotin can interfere with thyroid labs). Low-iodine diet recommended; provided resources for dietary guidance. Ophthalmology referral for baseline assessment, especially prior to considering radioactive iodine therapy. Advised patient to monitor for new visual symptoms (diplopia, pain, vision loss). Reviewed all options: antithyroid drugs, radioactive iodine ablation, thyroidectomy. Patient prefers to start with medical therapy; definitive therapy may be considered in the future. Not a candidate for radioactive iodine if active ophthalmopathy is confirmed. Plan 45 minutes spent reviewing previous records, labs, imaging, education and documenting in the chart Orders: Orders TSH reflex Free T4 6 Weeks YesArie Davalos MD R79.89 - Other specified abnormal findings of blood chemistry Liver Panel 6 Weeks YesArie Davalos MD E05.00 - Thyrotoxicosis with diffuse goiter without thyrotoxic crisis or storm Referrals Ophthalmology Referral YesArie Davalos MD E05.00 - Thyrotoxicosis with diffuse goiter without thyrotoxic crisis or storm Medications: New methimazole Please take 1 tablet daily 5 mg PO DAILY 30 tabs 0RF YesArie Davalos MD R70.89 - Other specified abnormal findings of blood chemistry Changed From prednisone 1 mg PO DAILY 30 tabs 0RF To prednisone 1 mg PO DAILY PRN Remy Zarate MD Patient Instructions: Low Iodine Diet Guidelines Foods to Avoid Iodized salt and sea salt (use only non-iodized salt) Dairy products: milk, cheese, yogurt, butter, ice cream Egg yolks and whole eggs (egg whites are allowed) Seafood: fish, shellfish, seaweed, kelp, sushi, rosita, carrageenan, agar-agar, alginate Soy products: soy sauce, tofu, soy milk, miso, edamame Commercial bakery products: breads, pastries, cakes (may contain iodate dough conditioners or dairy) Red dye #3 (often found in candies and processed foods) Chocolate and some dark kee (may contain dairy) Processed foods: canned soups, instant meals, cured meats (may contain iodized salt or dairy) Vitamin/mineral supplements containing iodine Foods Allowed Fresh meats: beef, chicken, turkey, pork (not processed or cured) Egg whites Fresh fruits and vegetables (except those pickled or canned with iodized salt) Grains: rice, pasta, oats, unsalted matzo, homemade bread (without dairy, eggs, or iodized salt) Unsalted nuts and nut butters (peanut butter, almond butter) Oils and fats: olive oil, vegetable oil, margarine (without dairy) Sugar, honey, maple syrup, jam, jelly Coffee, tea, non-dairy creamers (check labels) Herbs and spices (without salt or seaweed additives) Sample 1-Day Low Iodine Meal Plan Breakfast: Oatmeal made with water, topped with fresh berries and a drizzle of honey Black coffee or tea Snack: Apple or banana Unsalted almonds Lunch: Grilled chicken breast (no marinade with soy sauce or dairy) Steamed broccoli and carrots Brown rice Fresh fruit Snack: Homemade popcorn (popped in oil, no butter or iodized salt) Dinner: Baked potato with olive oil and chives Roasted turkey slices Green salad with lemon juice and olive oil dressing Dessert: Fruit salad [place] Use only non-iodized salt if needed. Avoid all dairy, seafood, and processed foods with unknown ingredients. Read all labels carefully for hidden sources of iodine. Methimazole: Patient Instructions Why you are taking this medicine: Methimazole helps control an overactive thyroid (hyperthyroidism), such as in Graves? disease. It works by reducing the amount of thyroid hormone your body makes. How to Take Methimazole Take methimazole exactly as prescribed, at the same time(s) each day. You may take it with or without food, but try to be consistent. If you miss a dose, take it as soon as you remember. If it?s almost time for your next dose, skip the missed dose?do not double up. Important Side Effects to Watch For Stop methimazole and contact your doctor or go to the emergency room immediately if you develop: Fever, sore throat, mouth sores, or any signs of infection Yellowing of your skin or eyes (jaundice), dark urine, or pain in the upper right side of your belly Unusual bruising or bleeding New rash, severe itching, or swelling Other possible side effects: Mild rash or itching Nausea or stomach upset (taking with food may help) Headache, joint or muscle aches Changes in taste or mild hair loss If these are mild, you can continue the medication, but let your doctor know if they persist or worsen. Monitoring and Follow-Up You will need regular blood tests to check your thyroid levels and blood counts. Report any symptoms of infection, yellowing of the skin/eyes, or unusual bleeding right away. Other Important Information Do not use any new medications, supplements, or htnc-nqs-[id number] products without checking with your doctor. If you are , planning to become , or , inform your doctor immediately. Store methimazole at room temperature, away from moisture and heat. Dietary Instructions You may be asked to follow a low-iodine diet before certain treatments. Avoid iodized salt, dairy, seafood, and processed foods with added iodine if instructed. Coding Level of Care Code Est Pt Level 4 (81752) Diagnoses Graves' disease E05.00
[2025-06-27 15:39] VITALS: BP 114/76; PULSE 75; O2SAT 96; BMI 39.6
== END 2025-06-27 16:23 | disposition home or self-care (01) ==
LOC: HO.ENCR 15:20
PROVIDERS: PCP Internal Medicine; Visit Provider Student in an Organized Health Care Education/Training Program
DX: E05.00 Thyrotoxicosis with diffuse goiter without thyrotoxic crisis or storm (principal)
CPT/HCPCS: 99214

== ENCOUNTER 2025-07-03 09:09 | Outpatient (AMB) | payer OTHER, SELFPAY ==
--- NOTE | 2025-07-03 09:14 | MHC.OFFVIS ---
Vital Signs 07/03/25 09:15 Height 4 ft 11 in Weight 199 lb 15.348 oz BMI 40.4 BP 160/100 H Blood Pressure Location Lt brachial Position Sitting Pulse 94 Pulse Source Pulse Oximeter Pulse Oximetry (%) 97 Oxygen Delivery Method Room Air Intake Visit Reasons: 2 months Intake Note: Patient presents for UCTD. Accompanied by: Self / Same As Patient Allergies No Known Allergies Allergy (Verified 07/03/25 09:15) HPI HPI 2 months: Details: Grave's disease is not controlled. She was recently dx. Methimazole started. She will be seeing an visual aid expert for evaluation of ocular disease related to Graves disease. 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 She also has numbness in her hands when she is on the phone. She is experiencing cramps in her calves when she is at work and has to walk for prolonged periods of time. She has not had to do prolonged walking recently and therefore has not had any calf pain. She is experiencing pain in her upper back recently. She is applying heat as needed. [facility] Medical History Thyromegaly Low TSH level History of recurrent miscarriages Iron deficiency anemia Moderate major depression Undifferentiated connective tissue disease Surgical History Previous section Family History Mother Crohn's disease IBS (irritable bowel syndrome) Mental and behavioral problem Hypertension Stroke Fibromyalgia Father Mental and behavioral problem Asthma Hypertension Maternal Uncle Colon cancer Social History Household Members: Spouse and Children Housing: Apartment Alcohol intake: never Patient Tobacco Use Status: Never used Tobacco e-Cigarette/Vaping Use: Never Used Second Hand Smoke Exposure: No service: No Current occupational status: employed 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 Good respiratory effort MSK: No synovitis. She is able to make a fist. Positive Phalen's test left side. Good cervical range of motion. Tender to palpate trapezius. Assessment & Plan Assessment & Plan (1) Neuropathy: Comment: Bilateral upper extremities and lower extremities. She has positive Phalen's test on exam this visit, which is a clinical sign of carpal tunnel syndrome. She was recently diagnosed with Graves disease. She is seeing an carpenter prototype and started methimazole. Graves disease can cause neuropathy. Code(s): G62.9 - Polyneuropathy, unspecified Category: Medical Plan: Management of Graves disease per carpenter prototype EMG of bilateral upper extremities and lower extremities scheduled in July Prescription for cock-up wrist braces prescribed to wear at night Return to clinic in 3 months (2) Polyarthralgia: Comment: Chronic polyarthralgias since age 19 affecting hands, wrists, feet progressing to involve ankles more recently. Pain in joints has increased after the of her child a year ago. She does not have synovitis to suggest inflammatory arthritis. History significant for recurrent miscarriages x4. Prior workup has revealed low titer positive ALEX 1:80, negative anti CCP antibody, rheumatoid factor and SLE specific antibodies/disease activity markers. Dr. Fall prescribed hydroxychloroquine, which she took for 2 weeks but then discontinued after she became . At this time she does not have clinical evidence of inflammatory arthritis. SLE and APS workup was unremarkable. Her x-rays were unremarkable. Low clinical suspicion for connective tissue disease at this time. She was recently diagnosed with Graves disease, which can contribute to joint pain. Code(s): M25.50 - Pain in unspecified joint Category: Medical Plan: No further rheumatological workup is indicated at this time Management of Graves disease per endocrinology (3) ALEX positive: Comment: Positive ALEX 1-80 Code(s): R76.8 - Other specified abnormal immunological findings in serum Category: Medical Plan: No further rheumatological workup is indicated (4) History of recurrent miscarriages: Comment: She has had 4 miscarriages and 4 live births. February 2023 workup revealed negative beta 2 glycoprotein antibody, cardiolipin antibodies and lupus anticoagulant. She does not meet criteria for antiphospholipid syndrome. Code(s): N96 - Recurrent loss Category: Medical Plan: No further rheumatological workup is indicated (5) Trapezius strain: Code(s): S46.819A - Strain of other muscles, fascia and tendons at shoulder and upper arm level, unspecified arm, initial encounter Category: Medical Qualifiers: Laterality: unspecified laterality Plan: Apply heat to neck twice a day Start using lidocaine patches Consider massage She will call office if pain does not improve after 2 weeks for physical therapy Can consider prescribing NSAID Return to clinic in 3 months Medications: New arm brace (Wrist Brace) As directed Bilateral cockup wrist Dx: carpal tunnel syndrome 2 ea 0RF Coding Level of Care Code Est Pt Level 4 (91531) Complex EM visit Add On G2211 Diagnoses Neuropathy G62.9 Polyarthralgia M25.50 ALEX positive R76.8 History of recurrent miscarriages N96 Trapezius strain S46.819A Laterality: unspecified laterality
[2025-07-03 09:15] VITALS: BP 160/100; PULSE 94; O2SAT 97; BMI 40.4
== END 2025-07-03 09:48 | disposition home or self-care (01) ==
PROVIDERS: PCP Internal Medicine; Visit Provider Internal Medicine Rheumatology
DX: G62.9 Polyneuropathy, unspecified (principal); M25.50 Pain in unspecified joint; R76.89 Other specified abnormal immunological findings in serum; N96 Recurrent pregnancy loss; S46.819A Strain of other muscles, fascia and tendons at shoulder and upper arm level, unspecified arm, initial encounter
CPT/HCPCS: 99214; G2211

== ENCOUNTER 2025-08-09 09:15 | Outpatient (REF) | payer MEDICAID, SELFPAY ==
[2025-08-09 10:54] LABS: Alanine Aminotransferase 23 U/L (0-31); Albumin Level 4.5 g/dL (3.5-5.0); Alkaline Phosphatase 111 U/L (39-117); Aspartate Amino Transferase 23 U/L (5-31); Total Protein 7.3 g/dL (6.5-8.0)
== END 2025-08-09 09:16 | disposition home or self-care (01) ==
LOC: HO.LAB 09:15
PROVIDERS: PCP Internal Medicine; Visit Provider Student in an Organized Health Care Education/Training Program
DX: R79.89 Other specified abnormal findings of blood chemistry (principal); E05.00 Thyrotoxicosis with diffuse goiter without thyrotoxic crisis or storm
CPT/HCPCS: 36415; 80076; 84443

== ENCOUNTER 2025-08-14 14:54 | Outpatient (REF) | payer MEDICAID, SELFPAY ==
--- NOTE | 2025-08-14 14:57 | EMG_ITS ---
Chief complaint: History of Graves. Complains of numbness on both hands and feet. Reason for referral: Evaluate for Carpal Tunnel Syndrome in upper extremities, evaluate for neuropathy for lower extremities Referred by: Dr. Werner Procedure done: Bilateral upper and lower extremities NCS/EMG Precautions and/or limitations: None The limb temperature was monitored continuously and remained between 32-36 degrees C during the performance of the NCS. Nerve Conduction Studies Anti Sensory Summary Table ?Stim Site NR Onset (ms) Norm Onset (ms) Peak (ms) Norm Peak (ms) O-P Amp (?V) Norm O-P Amp Site1 Site2 Delta-0 (ms) Dist (cm) Brett (m/s) Norm Brett (m/s) Left Median Anti Sensory (2nd Digit) Wrist ? 2.7 3.3 <3.6 44.0 >10 Wrist 2nd Digit 2.7 14.0 52 Right Median Anti Sensory (2nd Digit) Wrist ? 2.8 3.5 <3.6 44.5 >10 Wrist 2nd Digit 2.8 14.0 50 Left Sural Anti Sensory (Lat Mall) Calf ? 2.3 3.0 <4.0 5.0 >5.0 Calf Lat Mall 2.3 14.0 61 Right Sural Anti Sensory (Lat Mall) Calf ? 2.7 3.5 <4.0 9.7 >5.0 Calf Lat Mall 2.7 14.0 52 Left Ulnar Anti Sensory (5th Digit) Wrist ? 2.3 3.0 <3.7 22.7 >15.0 Wrist 5th Digit 2.3 14.0 61 Right Ulnar Anti Sensory (5th Digit) Wrist ? 2.2 2.9 <3.7 17.1 >15.0 Wrist 5th Digit 2.2 14.0 64 Motor Summary Table ?Stim Site NR Onset (ms) Norm Onset (ms) O-P Amp (mV) Norm O-P Amp iAmp (mV) Amp (1st) (%) Site1 Site2 Delta-0 (ms) Dist (cm) Brett (m/s) Norm Brett (m/s) Left Median Motor (Abd Poll Brev) Wrist ? 3.4 <3.9 7.6 >4.5 8.9 100.0 Elbow Wrist 3.0 16.0 53 >45 Elbow ? 6.4 6.2 7.5 81.6 Right Median Motor (Abd Poll Brev) Wrist ? 3.4 <3.9 9.3 >4.5 10.9 100.0 Elbow Wrist 3.1 16.0 52 >45 Elbow ? 6.5 9.1 10.6 97.8 Left Peroneal Motor (Ext Dig Brev) Ankle ? 3.9 <4.0 2.7 >2.5 3.1 100.0 Ankle Ext Dig Brev 3.9 0.0 B Fib ? 8.3 4.5 5.3 166.7 B Fib Ankle 4.4 27.0 61 >40 Poplt ? 8.9 4.3 5.0 159.3 Poplt B Fib 0.6 3.5 58 >40 Right Peroneal Motor (Ext Dig Brev) Ankle ? 3.9 <4.0 3.8 >2.5 4.6 100.0 Ankle Ext Dig Brev 3.9 0.0 B Fib ? 8.6 4.6 5.4 121.1 B Fib Ankle 4.7 27.5 59 >40 Poplt ? 9.1 4.5 5.3 118.4 Poplt B Fib 0.5 5.0 100 >40 Left Tibial Motor (Abd Matthew Brev) Ankle ? 3.3 <5 9.0 >2.5 11.9 100.0 Ankle Abd Matthew Brev 3.3 0.0 Knee ? 10.1 4.4 6.3 48.9 Knee Ankle 6.8 33.0 49 >40 Left Ulnar Motor (Abd Dig Minimi) Wrist ? 2.6 <3.0 9.7 >5 12.9 100.0 B Elbow Wrist 2.4 15.5 65 >45 B Elbow ? 5.0 10.1 13.4 104.1 A Elbow B Elbow 1.1 10.0 91 >45 A Elbow ? 6.1 10.3 13.4 106.2 Right Ulnar Motor (Abd Dig Minimi) Wrist ? 2.3 <3.0 8.6 >5 10.7 100.0 B Elbow Wrist 2.4 14.5 60 >45 B Elbow ? 4.7 8.8 10.7 102.3 A Elbow B Elbow 1.2 10.0 83 >45 A Elbow ? 5.9 9.4 11.5 109.3 H Reflex Studies ?NR H-Lat (ms) L-R H-Lat (ms) L-R Lat Norm M-Lat (ms) HLat-MLat (ms) Left Tibial (Gastroc) ? 16.07 0.06 <2.0 0.39 15.68 Right Tibial (Gastroc) ? 16.13 0.06 <2.0 0.39 15.74 EMG ?Side Muscle Nerve Root Ins Act Fibs Psw Amp Dur Poly Recrt Int Pat Comment Right 1stDorInt Ulnar C8-T1 Nml Nml Nml Nml Nml 0 Nml Complete Right FlexCarRad Median C6-7 Nml Nml Nml Nml Nml 0 Nml Complete Right Biceps Musculocut C5-6 Nml Nml Nml Nml Nml 0 Nml Complete Right Triceps Radial C6-7-8 Nml Nml Nml Nml Nml 0 Nml Complete Right Deltoid Axillary C5-6 Nml Nml Nml Nml Nml 0 Nml Complete Left 1stDorInt Ulnar C8-T1 Nml Nml Nml Nml Nml 0 Nml Complete Left FlexCarRad Median C6-7 Nml Nml Nml Nml Nml 0 Nml Complete Left Biceps Musculocut C5-6 Nml Nml Nml Nml Nml 0 Nml Complete Left Triceps Radial C6-7-8 Nml Nml Nml Nml Nml 0 Nml Complete Left Deltoid Axillary C5-6 Nml Nml Nml Nml Nml 0 Nml Complete Right AbdHallucis MedPlantar S1-2 Nml Nml Nml Nml Nml 0 Nml Complete Right AntTibialis Dp Br Peron L4-5 Nml Nml Nml Nml Nml 0 Nml Complete Right PostTibialis Tibial L5, S1 Nml Nml Nml Nml Nml 0 Nml Complete Right MedGastroc Tibial S1-2 Nml Nml Nml Nml Nml 0 Nml Complete Right VastusMed Femoral L2-4 Nml Nml Nml Nml Nml 0 Nml Complete Left AbdHallucis MedPlantar S1-2 Nml Nml Nml Nml Nml 0 Nml Complete Left AntTibialis Dp Br Peron L4-5 Nml Nml Nml Nml Nml 0 Nml Complete Left PostTibialis Tibial L5, S1 Nml Nml Nml Nml Nml 0 Nml Complete Left MedGastroc Tibial S1-2 Nml Nml Nml Nml Nml 0 Nml Complete Left VastusMed Femoral L2-4 Nml Nml Nml Nml Nml 0 Nml Complete FINDINGS: All motor and sensory nerves tested showed normal latencies, amplitudes and conduction velocities. H reflexes are normal latencies and symmetric. Concentric needle EMG was performed in selected muscles of the bilateral upper and lower extremities. Study did not reveal signs of electric abnormalities as shown in the table above. IMPRESSION: 1. This is a normal study. 2. There is no electrodiagnostic evidence for median neuropathy, ulnar neuropathy, brachial plexopathy, cervical radiculopathy, peroneal neuropathy, tibial neuropathy, lumbosacral plexopathy, lumbar radiculopathy, or peripheral neuropathy. Thank you for your kind referral. Clarissa Tatum MD, RIDDHI Board Certified, [place] Board [employer] Medicine and Rehabilitation (ABPMR) Board Certified, [place] Board of Electrodiagnostic Medicine (ABEM) CODIN [id number] x 4 extremities MTDD
== END 2025-08-14 14:55 | disposition home or self-care (01) ==
LOC: HO.NEURO 14:54
PROVIDERS: PCP Internal Medicine; Visit Provider Internal Medicine Rheumatology
DX: G62.9 Polyneuropathy, unspecified (principal)
CPT/HCPCS: 95886; 95913

== ENCOUNTER → 2025-08-14 14:57 | Outpatient (BNV) | payer MEDICAID, SELFPAY | PROVIDERS: PCP Internal Medicine; Visit Provider Physical Medicine & Rehabilitation | DX: G62.9 Polyneuropathy, unspecified (principal) | CPT/HCPCS: 95886; 95913 ==

== ENCOUNTER 2025-08-26 15:57 | Outpatient (AMB) | payer MEDICAID, OTHER, SELFPAY ==
--- NOTE | 2025-08-26 15:58 | MHC.OFFVIS ---
Vital Signs 08/26/25 16:02 Height 4 ft 11 in Weight 190 lb 14.725 oz BMI 38.6 BP 130/82 Blood Pressure Location Lt brachial Position Sitting Intake Visit Reasons: Thyrotoxicosis- pt Intake Note: Patient presents here today for Thyrotoxicosis follow-up after completion of work-up. Room Attendant Required: No Accompanied by: Daughter Allergies No Known Allergies Allergy (Verified 08/26/25 16:02) Medication List - Last Reconciled 08/26/25 by Solo Davalos MD arm brace (Wrist Brace) As directed Bilateral cockup wrist Dx: carpal tunnel syndrome methimazole 5 mg PO DAILY HPI Comments Details: 34-year-old female coming in today for initial evaluation of subclinical hyperthyroidism. Last seen by Dr. Morfin on 06/03/2025. This is the 1st time I see this patient. Labs from March 2025 showed TSH was low at 0.01 with normal free T4 of 1.19, labs repeated 05/17/2025 showed suppressed TSH with normal free T4 1.21, high free T3 of 4.7, normal total T3 of 176. Reports heat intolerance. sometime within the last 6 months. dry skin. low energy worsening. rerports anxiety and irritability. Patient currently denies diarrhea or constipation, hair loss, palpitation, weight changes, changes in appearance of eyes or vision changes (does have some dry eyes) , tremors, increased diaphoresis. Pregnancies: 9 , 4 live kids, 4 miscarriages youngest 15 months old, not LMP: 05/12/25, monthly periods but delayed by a few days each cycle No preceding viral infection No contrast exposure No fractures No CAD, no arrthmias Patient denies any difficulty swallowing, pain on swallowing or voice changes or difficulty breathing. Patient denies any history of childhood neck radiation. Denies having ever used lithium, amiodarone or biotin supplements. Patient denies any family history of thyroid cancer. 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 NAD. Neck/Thyroid: Thyroid enlarged, no nodules. Eyes: No conjunctival injection, mild lid lag, and mildproptosis CV: RRR, no murmur. No edema. Resp: Lungs clear to auscultation bilaterally Abdomen: Soft, nontender. nondistended Extremities/Neuro: No weakness or tremor of outstretched hands Laboratory Tests 06/03/25 08/09/25 14:20 09:27 TSH < 0.01 L 0.88 Free T4 1.13 Total T3 158 Thyroid Stim Immunoglob 161 H 04/10/25 04/12/25 05/17/25 11:17 08:43 07:46 TSH 0.01 L 0.01 L < 0.01 L Free T4 1.19 1.21 Free T3 4.7 H Total T3 176 Thyroid US 06/23/25 FINDINGS: SIZE: Measurements of the thyroid lobes and nodules are given in sagittal, anteroposterior and transverse dimensions respectively. Right Thyroid Lobe: 5.0 x 1.0 x 2.4 cm, volume 9.9 mL. Parenchyma: The gland echotexture is heterogeneous. Thyroid vascularity is normal. Left Thyroid Lobe: 4.7 x 1.4 x 1.6 cm, volume 5.5 mL. Parenchyma: The gland echotexture is heterogeneous. Thyroid vascularity is normal. Isthmus: 0.4 cm in maximum AP dimension. Estimated total number of nodules greater than or equal to 1 cm: 0. 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 IMPRESSION: ACR TI-RADS category: 1 [facility] Medical History Thyromegaly Low TSH level History of recurrent miscarriages Iron deficiency anemia Moderate major depression Undifferentiated connective tissue disease Surgical History Previous section Family History Mother Crohn's disease IBS (irritable bowel syndrome) Mental and behavioral problem Hypertension Stroke Fibromyalgia Father Mental and behavioral problem Asthma Hypertension Maternal Uncle Colon cancer Social History Household Members: Spouse and Children Housing: Apartment Alcohol intake: never Patient Tobacco Use Status: Never used Tobacco e-Cigarette/Vaping Use: Never Used Second Hand Smoke Exposure: No service: No Current occupational status: employed 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 [employer] Cognitive needs: No Hearing needs: No Vision needs: Yes (Glasses) Physical Exam Vital Signs: Last Vital Signs BP 130/82 08/26/25 16:02 BMI result Body Mass Index 38.6 Assessment & Plan Assessment & Plan (1) Graves' disease: Code(s): E05.00 - Thyrotoxicosis with diffuse goiter without thyrotoxic crisis or storm Category: Medical Plan: Assessment Patient has ongoing symptoms of heat/cold intolerance, irritability, anxiety, variable menstrual cycles, and weight fluctuations, and persistently suppressed TSH, elevated TSI and TRAb, low TPO, no thyroid nodules on ultrasound, which is consistent with Graves disease. Previously considered differential diagnosis like toxic thyroid nodule, or thyroiditis seems less likely as stripe and TSI is positive. She does have mild lid lag and mild proptosis on exam, but she does not have any diplopia or other vision changes that she reported. Graves is an autoimmune disease characterized by the production of TSH receptor antibodies, leading to unregulated thyroid hormone production. The natural history includes periods of remission and relapse. With antithyroid drug therapy, about 30-50% of patients may achieve remission after 18-24 months, but recurrences possible especially with younger patients. Definitive therapy (radioactive iodine ablation or thyroidectomy) is considered for those with persistent or relapsing disease, medication intolerance, or patient preference. Plan Continue methimazole 5mg daily (low dose) to control hyperthyroidism and minimize risk of iatrogenic hypothyroidism. Educated patient on side effects: agranulocytosis (fever/sore throat warning), hepatotoxicity, GI upset. Continue metoprolol as needed for symptom control Monitor for improvement in symptoms Labs: Order TSH and Free T4 in 6 weeks to assess response. Ophthalmology referral for baseline assessment, especially prior to considering radioactive iodine therapy. Advised patient to monitor for new visual symptoms (diplopia, pain, vision loss). Plan 30 minutes spent reviewing previous records, labs, imaging, education and documenting in the chart Orders: Orders TSH reflex Free T4 8 Weeks E05.00 - Thyrotoxicosis with diffuse goiter without thyrotoxic crisis or storm Free T4 (Free Thyroxine) 8 Weeks E05.00 - Thyrotoxicosis with diffuse goiter without thyrotoxic crisis or storm Liver Panel 8 Weeks E05.00 - Thyrotoxicosis with diffuse goiter without thyrotoxic crisis or storm Triiodothyronine T3 Total 8 Weeks E05.00 - Thyrotoxicosis with diffuse goiter without thyrotoxic crisis or storm Medications: Refilled methimazole Please take 1 tablet daily 5 mg PO DAILY 30 tabs 6RF R79.89 - Other specified abnormal findings of blood chemistry Coding Level of Care Code Est Pt Level 4 (02653) Add On Problem Visit Only Diagnoses Graves' disease E05.00
[2025-08-26 16:02] VITALS: BP 130/82; BMI 38.6
== END 2025-08-26 16:27 | disposition home or self-care (01) ==
LOC: HO.ENCR 15:57
PROVIDERS: PCP Internal Medicine; Visit Provider Student in an Organized Health Care Education/Training Program
DX: E05.00 Thyrotoxicosis with diffuse goiter without thyrotoxic crisis or storm (principal)
CPT/HCPCS: 99214; G2211

== ENCOUNTER → 2025-08-26 15:57 | Outpatient (BNVA) | payer MEDICAID, SELFPAY | PROVIDERS: PCP Internal Medicine; Visit Provider Student in an Organized Health Care Education/Training Program | DX: E05.00 Thyrotoxicosis with diffuse goiter without thyrotoxic crisis or storm (principal) | CPT/HCPCS: 99212 ==